=== PATIENT | female | born 1935 | race Caucasian/White ===

== ENCOUNTER 2017-05-21 13:53 | Inpatient (IN) | payer MEDICARE, OTHER ==
--- NOTE | 2017-05-21 14:35 | RADIOLOGY REPORT (SQ) ---
EXAM DESCRIPTION: CHEST SINGLE VIEW COMPLETED DATE/TIME: 05/21/2017 2:26 pm REASON FOR STUDY: sob COMPARISON: 11/17/2015 EXAM PARAMETERS: NUMBER OF VIEWS: One view. TECHNIQUE: Single frontal radiographic view of the chest acquired. RADIATION DOSE: NA LIMITATIONS: None. FINDINGS: LUNGS AND PLEURA: Patchy consolidation in the right mid-lower lung zones. Considerations for this finding includes pneumonia. The left lung is stable in appearance. No new pneumothorax or pleural effusion. MEDIASTINUM AND HILAR STRUCTURES: No masses. Contour normal. HEART AND VASCULAR STRUCTURES: Heart normal in size. Normal vasculature. BONES: No acute findings. HARDWARE: EKG leads overlie the anterior chest wall. OTHER: No other significant finding. IMPRESSION: 1 Patchy areas of consolidation in the right mid-lower lung zones. Considerations for t his finding includes pneumonia. A follow-up examination after treatment to document for interval res olution. TECHNICAL DOCUMENTATION: JOB ID: [id number] [employer]- All Rights Reserved Reading location - IP/workstation name: [email or web address]
[2017-05-21] MEDS ORDERED: CEFEPIME 1 GM/D5W RTU 1 GM/50 ML RTUPB IV ONE (14:36)
[2017-05-21] MEDS ORDERED: LEVOFLOXACIN 750 MG/D5W RTU 750 MG/150 ML RTUPB IV ONE (14:36)
[2017-05-21] MEDS ORDERED: VANCOMYCIN HCL INJ 1000 MG VIAL IV ONE (14:36)
--- NOTE | 2017-05-21 14:41 | ER Document Report ---
ED Respiratory Problem - General Mode of Arrival: Ambulatory Information source: Patient TRAVEL OUTSIDE OF THE [place] IN LAST 30 DAYS: No <ROSA NOVAK - Last Filed: 05/21/17 19:16> <HARVINDER SEALS - Last Filed: 05/21/17 23:11> - General Chief Complaint: Respiratory Distress Stated Complaint: COUGH Time Seen by Provider: 05/21/17 14:32 Notes: Patient is an 82 year old female with a history of Afib presents to the emergency department complaining of cough, congestion and diarrhea onset 1 week ago. Patient denies a history of COPD, asthma, or CHF. (ROSA NOVAK) - Related Data Allergies/Adverse Reactions: codeine [Codeine] Allergy (Verified 11/17/15 09:14) Generalized Itching Past Medical History - General Information source: Patient - Social History Smoking Status: Unknown if Ever Smoked Family History: Reviewed & Not Pertinent - Past Medical History Cardiac Medical History: Reports: Hx Hypercholesterolemia, Hx Hypertension Endocrine Medical History: Reports: Hx Hypothyroidism Musculoskeltal Medical History: Reports Hx Arthritis Past Surgical History: Reports: Hx Hysterectomy - partial - Immunizations Hx Diphtheria, Pertussis, Tetanus Vaccination: No <ROSA NOVAK - Last Filed: 05/21/17 19:16> Review of Systems - Review of Systems Constitutional: No symptoms reported EENT: No symptoms reported Cardiovascular: No symptoms reported Respiratory: See HPI, Cough Gastrointestinal: See HPI, Diarrhea Genitourinary: No symptoms reported Female Genitourinary: No symptoms reported Musculoskeletal: No symptoms reported Skin: No symptoms reported Hematologic/Lymphatic: No symptoms reported Neurological/Psychological: No symptoms reported -: Yes All other systems reviewed and negative <ROSA NOVAK - Last Filed: 05/21/17 19:16> Physical Exam <ROSA NOVAK - Last Filed: 05/21/17 19:16> <HARVINDER SEALS - Last Filed: 05/21/17 23:11> - Vital signs Vitals: Resp BP Pulse Ox 30 H 127/68 H 82 L 05/21/17 14:14 05/21/17 14:14 05/21/17 14:14 - Notes Notes: GENERAL: Alert, interacts well. Mild distress. HEAD: Normocephalic, atraumatic. EYES: Pupils equal, round, and reactive to light. Extraocular movements intact. ENT: Oral mucosa moist, tongue midline. NECK: Full range of motion. Supple. Trachea midline. LUNGS: On BiPAP at bedside. Hypoxic. Rales in the right mid to lower lung field. HEART: Tachycardic, irregularly irregular. No murmurs, gallops, or rubs. ABDOMEN: Soft, non-tender. Non-distended. Bowel sounds present in all 4 quadrants. EXTREMITIES: Moves all 4 extremities spontaneously. NEUROLOGICAL: Alert and oriented x3. Normal speech. PSYCH: Normal affect, normal mood. SKIN: Warm, dry, normal turgor. No rashes or lesions noted. (ROSA NOVAK) Course - Laboratory Result Diagrams: 05/21/17 15:23 05/21/17 15:23 <ROSA NOVAK - Last Filed: 05/21/17 19:16> - Laboratory Result Diagrams: 05/21/17 15:23 05/21/17 15:23 - Diagnostic Test Radiology reviewed: Reports reviewed <HARVINDER SEALS - Last Filed: 05/21/17 23:11> - Re-evaluation Re-evalutation: 05/21/17 14:35 X-ray shows Pneumonia in right lung. (ROSA NOVAK) Patient is an 82-year-old female who presents from home with cough and difficulty breathing. Patient is a full code. Recent upper respiratory infection. Chest x-ray is consistent with pneumonia as his clinical presentation. Cultures have been sent. Vancomycin was added to regimen due to recent URI. Patient is comfortable on BiPAP. She is speaking in full sentences. She is responded well to fluids. Patient was discussed with the hospitalist service and will be admitted to the ICU. Stable at time of admission. Patient and agree with this plan. (HARVINDER SEALS) - Vital Signs Vital signs: Temp Pulse Resp BP Pulse Ox 127 H 26 H 107/70 93 05/21/17 20:32 05/21/17 20:32 05/21/17 19:30 05/21/17 20:32 - Laboratory Laboratory results interpreted by ma: 05/21/17 05/21/17 05/21/17 15:23 15:23 15:23 WBC 20.5 H Hgb 11.7 L Hct 35.7 L Seg Neuts % (Manual) 87 H Lymphocytes % (Manual) 3 L Abs Neuts (Manual) 18.9 H Potassium 2.7 L* Carbon Dioxide 21 L BUN 46 H Lactic Acid 2.4 H Calcium 8.2 L Total Bilirubin 1.7 H Direct Bilirubin 0.9 H Alkaline Phosphatase 136 H Albumin 3.2 L Critical Care Note - Critical Care Note Total time excluding time spent on procedures (mins): 60 - Evaluation and management of respiratory distress, hypotension, sepsis, coordination of admission, multiple re-evaluations, counseling of patient and family <HARVINDER SEALS - Last Filed: 05/21/17 23:11> Discharge <ROSA NOVAK - Last Filed: 05/21/17 19:16> - Discharge Admitting Provider: Hospitalist Unit Admitted: ICU <HARVINDER SEALS - Last Filed: 05/21/17 23:11> - Discharge Clinical Impression: Respiratory distress, Hypokalemia Pneumonia Qualifiers: Pneumonia type: due to unspecified organism Laterality: right Lung location: unspecified part of lung Qualified Code(s): J18.9 - Pneumonia, unspecified organism Sepsis Qualifiers: Sepsis type: sepsis due to unspecified organism Qualified Code(s): A41.9 - Sepsis, unspecified organism Condition: Stable Disposition: ADMITTED INPATIENT Scribe Attestation: 05/21/17 23:11 I personally performed the services described in the documentation, reviewed and edited the documentation which was dictated to the scribe in my presence, and it accurately records my words and actions. (HARVINDER SEALS) Scribe Documentation - Scribe Written by Libertad:: Libertad Sood, 05/21/2017 15:05 acting as scribe for :: Arianna <ROSA NOVAK - Last Filed: 05/21/17 19:16>
[2017-05-21 15:44] LABS: HEMATOCRIT 35.7 % (36.0-47.0); HEMOGLOBIN 11.7 g/dL (12.0-15.5); MEAN CORPUSCULAR VOLUME 88 fl (80-97); RED BLOOD COUNT 4.05 10^6/uL (3.72-5.28); WHITE BLOOD COUNT 20.5 10^3/uL (4.0-10.5)
[2017-05-21 15:45] LABS: MEAN CORPUSCULAR HEMOGLOBIN 28.8 pg (27.0-33.4); MEAN CORPUSCULAR HGB CONC 32.7 g/dL (32.0-36.0); PLATELET COUNT 208 10^3/uL (150-450); RED CELL DISTRIBUTION WIDTH 13.4 % (11.5-14.0)
[2017-05-21 15:46] LABS: VENOUS BLOOD HCO3 24.9 mmol/L (20-32); VENOUS BLOOD PCO2 45.3 mmHg (35-63); VENOUS BLOOD PH 7.36 (7.30-7.42)
[2017-05-21 16:09] LABS: ALANINE AMINOTRANSFERASE 27 U/L (9-52); ALBUMIN 3.2 g/dL (3.5-5.0); ALKALINE PHOSPHATASE 136 U/L (38-126); ANION GAP 17 (5-19); ASPARTATE AMINO TRANSFERASE 32 U/L (14-36); BILIRUBIN,DIRECT 0.9 mg/dL (0.0-0.4); BILIRUBIN,TOTAL 1.7 mg/dL (0.2-1.3); BLOOD UREA NITROGEN 46 mg/dL (7-20); CALCIUM 8.2 mg/dL (8.4-10.2); CARBON DIOXIDE 21 mmol/L (22-30); CHLORIDE 99 mmol/L (98-107); CREATINE KINASE 68 U/L (30-135); GLUCOSE 85 mg/dL (75-110); SODIUM 137.4 mmol/L (137-145); TOTAL PROTEIN 6.5 g/dL (6.3-8.2)
[2017-05-21 16:15] LABS: POTASSIUM 2.7 mmol/L (3.6-5.0)
[2017-05-21 16:18] LABS: ABSOLUTE LYMPHOCYTES# (MANUAL) 0.6 10^3/uL (0.5-4.7); ABSOLUTE NEUTROPHILS# (MANUAL) 18.9 10^3/uL (1.7-8.2); BAND NEUTROPHILS % (MANUAL) 5 % (3-5); BASOPHILS % (MANUAL) 0 % (0-2); EOSINOPHILS % (MANUAL) 0 % (0-6); LYMPHOCYTES % (MANUAL) 3 % (13-45); MONOCYTES % (MANUAL) 5 % (3-13); SEGMENTED NEUTROPHILS % (MAN) 87 % (42-78); TOTAL CELLS COUNTED 100
[2017-05-21 16:19] LABS: PLATELET COMMENT ADEQUATE; TOXIC GRANULATION SLIGHT
[2017-05-21 16:22] LABS: CREATINE KINASE MB 1.67 ng/mL (<4.55); TROPONIN I 0.016 ng/mL
[2017-05-21] MEDS ORDERED: NORMAL SALINE 1000 ML 1,000 ML IV ONE (16:23)
[2017-05-21] MEDS ORDERED: IPRATROPIUM/ALBUTEROL 0.5-2.5 MG/3 ML AMPUL NEB ONE (16:51)
[2017-05-21 17:04] LABS: APPEARANCE,URINE SLIGHTLY-CLOUDY; BILIRUBIN,URINE NEGATIVE (NEGATIVE); COLOR,URINE AMBER; GLUCOSE, URINE NEGATIVE (NEGATIVE); KETONES,URINE NEGATIVE (NEGATIVE); LEUKOCYTE ESTERASE,URINE NEGATIVE (NEGATIVE); NITRITE,URINE NEGATIVE (NEGATIVE); PROTEIN,URINE 100 mg/dL (NEGATIVE); URINE SPECIFIC GRAVITY 1.018; UROBILINOGEN,URINE NEGATIVE mg/dL (<2.0)
[2017-05-21] MEDS: POTASSI CL 20 MEQ/50 ML RIDER 20 MEQ/50 ML RTUPB IV SCH ×2 (17:06→19:25)
[2017-05-21] MEDS ORDERED: ALBUTEROL SULFATE 0.083% NEB 2.5 MG/3 ML AMPUL NEB PRN (17:57)
[2017-05-21] MEDS ORDERED: ACETAMINOPHEN 325 MG TABLET PO PRN (17:57)
[2017-05-21] MEDS ORDERED: PROMETHAZINE HCL 25 MG TABLET PO PRN (17:57)
[2017-05-21] MEDS ORDERED: MAGNESIUM HYDROXIDE SUSP 30 ML UDCUP PO PRN (17:57)
--- NOTE | 2017-05-21 17:57 | PDOC H&P ---
History of Present Illness Admission Date/PCP: 05/21/17 16:36 HONEY ISAACS NP; Dr. Higginbotham Custom Garment Designer; Dr. Roblero is paralegal internship History of Present Illness: ADA LANDERS is a 82 year old female presents to the emergency department with acute hypoxic respiratory failure secondary to pneumonia. Most of the history was actually obtained from the patient's . Apparently, the patient has been feeling poorly. The has noted that she has been breathing hard lately and she has not been eating. Further history obtained from the patient indicates that she has been coughing up a lot of clear phlegm. She does not have any fevers. She states that she feels cold but this is normal for her. She has not had any sweats. Both the patient's and their daughter have been ill with a cough and sore throat. The patient's only other symptom on review of systems is diarrhea that started with the onset of this illness. The patient presented to the emergency department her room air saturation was in the 60s and she was placed on BiPAP. She is now on 5 L nasal cannula satting in the low 90s. She is speaking very easily. When I was titrating her oxygen I noted that when she was satting in the 80s check she appeared to be very comfortable and therefore I question as to whether or not she has some component of chronic hypoxic respiratory failure. A copy of the patient's medication list was given to me from the ED staff. It will be updated in the chart by pharmacy. Past Medical History Cardiac Medical History: Reports: Atrial Fibrillation, Hyperlipidema, Hypertension Denies: Myocardial Infarction Pulmonary Medical History: Denies: Asthma Neurological Medical History: Denies: Seizures Endocrine Medical History: Reports: Hypothyroidism GI Medical History: Denies: Hepatitis, Hiatal Hernia Musculoskeltal Medical History: Reports: Arthritis Hematology: Denies: Anemia, Sickle Cell Disease Past Surgical History Past Surgical History: Reports: Hysterectomy - partial Denies: Mastectomy, Pacemaker Social History Smoking Status: Unknown if Ever Smoked Frequency of Alcohol Use: Heavy Hx Recreational Drug Use: No Drugs: None Hx Prescription Drug Abuse: No - Advance Directive Resuscitation Status: Full Code Surrogate healthcare decision maker:: The patient's , Tate Moses is her surrogate decision maker. He can be reached at [phone] Family History Family History: Reviewed & Not Pertinent Parental Family History Reviewed: Yes Children Family History Reviewed: Yes Sibling(s) Family History Reviewed.: Yes Medication/Allergy Allergies/Adverse Reactions: codeine [Codeine] Allergy (Verified 11/17/15 09:14) Generalized Itching Review of Systems Constitutional: PRESENT: anorexia, fatigue, weakness Eyes: ABSENT: as per HPI, visual disturbances, other Ears: ABSENT: as per HPI, hearing changes, other Nose, Mouth, and Throat: ABSENT: as per HPI, headache(s), mouth pain, sore throat, vertigo, other Breasts: ABSENT: as per HPI, other Cardiovascular: ABSENT: as per HPI, chest pain, dyspnea on exertion, edema, orthropnea, palpitations, other Respiratory: PRESENT: as per HPI Gastrointestinal: PRESENT: dysphagia Genitourinary: ABSENT: as per HPI, difficulty urinating, dysuria, hematuria, nocturia, other Musculoskeletal: ABSENT: as per HPI, back pain, deformity, joint swelling, muscle weakness, other Integumentary: ABSENT: as per HPI, diaphoresis, erythema, lesions, pruritus, rash, wounds, other Neurological: ABSENT: as per HPI, abnormal gait, abnormal movements, abnormal speech, confusion, convulsions, dizziness, focal weakness, frequent falls, lack of coordination, memory loss, numbness, paresthesias, restless legs, syncope, tingling, tremor(s), vertigo, weakness, other Psychiatric: ABSENT: as per HPI, anxiety, depression, hallucinations, homidical ideation, suicidal ideation, other Endocrine: ABSENT: as per HPI, cold intolerance, flushing, heat intolerance, menstrual abnormalities, polydipsia, polyphagia, polyuria, other Hematologic/Lymphatic: ABSENT: as per HPI, easy bleeding, easy bruising, lymphadenopathy, other Allergic/Immunologic: ABSENT: as per HPI, seasonal rhinorrhea, other Physical Exam Vital Signs: Temp Pulse Resp BP Pulse Ox 31 H 120/69 82 L 05/21/17 15:01 05/21/17 15:01 05/21/17 14:14 Additional comments: The patient appears to be very frail. She appears to be older than her stated age. She is thin. She has evidence of temporal wasting. She did not appear to be in any distress even when her oxygen saturations were only in the mid 80s. Her facial appearance is otherwise unremarkable. Her oropharynx is benign. She has dentures both upper and lower. Her neck is supple. She does not have any JVD present. Trachea is midline. Thyroid is nonpalpable. Lungs are diminished throughout without adventitious sounds. The cardiac exam demonstrates an irregularly irregular rhythm. No murmurs, gallops or rubs are noted. The abdomen is soft and flat. Bowel sounds are noted and are normoactive. She does not have guarding or rebound noted and there are no hernias or masses present. The lower extremities do not demonstrate any edema. The patient has bluish discoloration of her toes which she says is her baseline. The states that this is worse than her baseline. Otherwise, she has no acute skin lesions or rashes. Results Laboratory Results: 05/21/17 16:40 Urine Color DANO Urine Appearance SLIGHTLY-CLOUDY Urine pH 5.0 Ur Specific [place] 1.018 Urine Protein 100 H Urine Glucose (UA) NEGATIVE Urine Ketones NEGATIVE Urine Blood SMALL H Urine Nitrite NEGATIVE Ur Leukocyte Esterase NEGATIVE Urine WBC (Auto) 2 Urine RBC (Auto) 1 Impressions: Chest X-Ray 05/21/17 14:05 IMPRESSION: 1 Patchy areas of consolidation in the right mid-lower lung zones. Considerations for this finding includes pneumonia. A follow-up examination after treatment to document for interval resolution. Assessment & Plan - Diagnosis (1) Acute respiratory failure with hypoxia Is this a current diagnosis for this admission?: Yes Plan: The patient presents with acute hypoxic respiratory failure, however, I suspect that she has acute on chronic hypoxic respiratory failure. In any event, the patient will be treated with supplemental oxygen to maintain a saturation of 90- 94%. If needed, we will reinstitute BiPAP. She likely has underlying COPD in addition to her current diagnosis of pneumonia. (2) Pneumonia Is this a current diagnosis for this admission?: Yes Plan: The patient presents with an infiltrate on chest x-ray, a clinical history compatible with pneumonia and leukocytosis. The patient does not appear to have any risk factors for healthcare associated pneumonia. Therefore, she will be treated with ceftriaxone and Levaquin. (3) Atrial fibrillation and flutter Is this a current diagnosis for this admission?: Yes Plan: Patient appears to be going in and out of sinus tachycardia and atrial fibrillation/flutter. She does take Cardizem daily. We will continue Cardizem and ensure that her potassium is repleted. (4) Malnourished Is this a current diagnosis for this admission?: Yes Plan: I will order a dietary consult. (5) Hypokalemia Is this a current diagnosis for this admission?: Yes Plan: Patient is receiving both oral and IV replacement (6) Peripheral vascular disease Is this a current diagnosis for this admission?: Yes Plan: Suspect the patient has peripheral vascular disease based on her clinical exam. She is not symptomatic at this time. Smoking cessation would be beneficial. This was discussed with the patient. (7) Tobacco abuse Is this a current diagnosis for this admission?: Yes Plan: Smoking cessation has been addressed. - Time Time Spent: 50 to 70 Minutes - Inpatient Certification Medical Necessity: Significant Comorbidiites Make Outpatient Treatment Too Risky , Need Close Monitoring Due to Risk of Patient Decompensation, Need For Continuous Telemetry Monitoring, Need for IV Antibiotics, Risk of Complication if Not Cared For in Hospital, Risk of Diagnosis Which Will Require Inpatient Eval/Care/Monitoring
[2017-05-21] MEDS ORDERED: DILTIAZEM HCL INJ 25 MG/5 ML VIAL IV ONE (19:00)
[2017-05-21] MEDS ORDERED: METHYLPREDNISOLONE INJ 125 MG/2 ML SDV IV ONE (19:00)
--- NOTE | 2017-05-21 19:00 | EKG REPORT ---
SEVERITY:- ABNORMAL ECG - INITIAL SINUS RHYTHM DEGENERATING INTO A FIBRILLATION WITHH RVR NONSPECIFIC IVCD WITH LAD : Confirmed by: Tom Steve MD 21-May-2017 18:59:34
[2017-05-21] MEDS: IPRATROPIUM/ALBUTEROL 0.5-2.5 MG/3 ML AMPUL NEB SCH (20:32)
[2017-05-21 20:40] LABS: ARTERIAL BLOOD BASE EXCESS -3.3 mmol/L; ARTERIAL BLOOD FIO2 6L; ARTERIAL BLOOD H2CO3 0.87 mmol/L (1.05-1.35); ARTERIAL BLOOD HCO3 19.7 mmol/L (20-26); ARTERIAL BLOOD O2 SATURATION 91.9 % (94-98); ARTERIAL BLOOD PH 7.45 (7.35-7.45); ARTERIAL BLOOD PO2 58.4 mmHg (80-100); ARTERIAL BLOOD TOTAL CO2 20.5 mmol/L (21-25)
[2017-05-21] MEDS ORDERED: FENTANYL CITRATE INJ/PF 100 MCG/2 ML AMPUL IV ONE (21:41)
[2017-05-21] MEDS ORDERED: CEFTRIAXONE SODIUM 1,000 MG in NORMAL SALINE 100 ML IV SCH (22:00)
[2017-05-21] MEDS ORDERED: FAMOTIDINE INJ/PF 20 MG/2 ML SDV IV SCH (22:00)
[2017-05-22] MEDS: FAMOTIDINE INJ/PF 20 MG/2 ML SDV IV SCH ×2 (01:54→23:23)
[2017-05-22] MEDS ORDERED: METHYLPREDNISOLONE INJ 125 MG/2 ML SDV IV SCH ×2 (02:00→08:21)
[2017-05-22] MEDS: IPRATROPIUM/ALBUTEROL 0.5-2.5 MG/3 ML AMPUL NEB SCH ×4 (02:15→20:16)
[2017-05-22] MEDS: POTASSI CL 40 MEQ/D5-1/2NS 1L 40 MEQ/1,000 ML RTUINJ IV PRN ×2 (03:52→20:28)
[2017-05-22 06:36] LABS: ANION GAP 14 (5-19); BLOOD UREA NITROGEN 29 mg/dL (7-20); CALCIUM 7.4 mg/dL (8.4-10.2); CARBON DIOXIDE 16 mmol/L (22-30); CHLORIDE 107 mmol/L (98-107); GLUCOSE 136 mg/dL (75-110); PHOSPHORUS 2.6 mg/dL (2.5-4.5); POTASSIUM 3.1 mmol/L (3.6-5.0); SODIUM 137.2 mmol/L (137-145)
[2017-05-22 06:52] LABS: FREE T3 1.22 pg/mL (2.77-5.27); FREE T4 (FREE THYROXINE) 1.4 ng/dL (0.78-2.19)
[2017-05-22 07:06] LABS: THYROID STIMULATING HORMONE 0.12 uIU/mL (0.47-4.68)
--- NOTE | 2017-05-22 07:29 | EKG REPORT ---
SEVERITY:- ABNORMAL ECG - SINUS TACHYCARDIA PAIRED ATRIAL PREMATURE COMPLEXES INCOMPLETE LEFT BUNDLE BRANCH BLOCK : Confirmed by: Tom Steve MD 22-May-2017 07:29:04
[2017-05-22 07:57] LABS: INTERNATIONAL RATION (INR) 1.09; PARTIAL THROMBOPLASTIN TIME 46.8 SEC (23.5-35.8); PROTHROMBIN TIME 14.8 SEC (11.4-15.4)
[2017-05-22] MEDS: POTASSIUM CHLORIDE 10 MEQ TABLET.SA PO SCH ×5 (08:54→23:22)
[2017-05-22 09:19] LABS: HEMATOCRIT 34.1 % (36.0-47.0); HEMOGLOBIN 11.5 g/dL (12.0-15.5); MEAN CORPUSCULAR HEMOGLOBIN 29.5 pg (27.0-33.4); MEAN CORPUSCULAR HGB CONC 33.7 g/dL (32.0-36.0); MEAN CORPUSCULAR VOLUME 88 fl (80-97); PLATELET COUNT 160 10^3/uL (150-450); RED CELL DISTRIBUTION WIDTH 13.7 % (11.5-14.0); WHITE BLOOD COUNT 6.4 10^3/uL (4.0-10.5)
[2017-05-22 09:40] LABS: ABSOLUTE LYMPHOCYTES# (MANUAL) 0.3 10^3/uL (0.5-4.7); ABSOLUTE MONOCYTES # (MANUAL) 0.4 10^3/uL (0.1-1.4); ABSOLUTE NEUTROPHILS# (MANUAL) 5.8 10^3/uL (1.7-8.2); BAND NEUTROPHILS % (MANUAL) 4 % (3-5); BASOPHILS % (MANUAL) 0 % (0-2); EOSINOPHILS % (MANUAL) 0 % (0-6); LYMPHOCYTES % (MANUAL) 4 % (13-45); METAMYELOCYTES % (MANUAL) 1 % (0); MONOCYTES % (MANUAL) 6 % (3-13); SEGMENTED NEUTROPHILS % (MAN) 85 % (42-78); TOTAL CELLS COUNTED 100
[2017-05-22 09:41] LABS: BURR CELLS SLIGHT; OVALOCYTES 1+; PLATELET COMMENT ADEQUATE; POIKILOCYTOSIS 1+
[2017-05-22] MEDS ORDERED: ASPIRIN 81 MG TABLET, ENT COATED PO SCH (10:00)
[2017-05-22] MEDS ORDERED: CEFTRIAXONE 1 GM/D5W RTU 50 ML IV SCH (10:00)
[2017-05-22] MEDS: ENOXAPARIN SODIUM INJ 40 MG/0.4 ML DISP.SYRIN SUBCUT SCH (10:06)
[2017-05-22] MEDS: DILTIAZEM HCL 180 MG CAPSULE.CR PO SCH (10:10)
[2017-05-22] MEDS: METHYLPREDNISOLONE INJ 40 MG/1 ML SDV IV SCH ×2 (10:11→17:29)
--- NOTE | 2017-05-22 18:12 | PDOC PROGRESS REPORT ---
Subjective Progress Note for:: 05/22/17 Subjective:: Patient refers that her breathing is better. Denies chest pain. Review of system All organ systems evaluated and negative except as in subjective All significant laboratories and diagnostics have been reviewed Reason For Visit: ACUTE HYPOXIC RESPIRATORY FAILURE WITH PNEUMONIA Physical Exam Vital Signs: Temp Pulse Resp BP Pulse Ox 101 H 23 H 117/81 87 L 05/22/17 02:15 05/22/17 04:31 05/22/17 04:31 05/22/17 04:31 General appearance: PRESENT: cooperative, thin Head exam: PRESENT: atraumatic, normocephalic Eye exam: PRESENT: conjunctiva pink, EOMI, PERRLA Mouth exam: PRESENT: moist Neck exam: PRESENT: full ROM. ABSENT: JVD, lymphadenopathy, tenderness Respiratory exam: PRESENT: clear to auscultation pavel, decreased breath sounds Cardiovascular exam: PRESENT: RRR. ABSENT: diastolic murmur, systolic murmur Vascular exam: PRESENT: normal capillary refill GI/Abdominal exam: PRESENT: normal bowel sounds, soft. ABSENT: tenderness Extremities exam: PRESENT: full ROM. ABSENT: pedal edema, tenderness Musculoskeletal exam: PRESENT: ambulatory Neurological exam: PRESENT: alert, awake, oriented to person, oriented to place , oriented to time Psychiatric exam: PRESENT: appropriate affect, normal mood Skin exam: PRESENT: dry, normal color Results Laboratory Results: 05/22/17 06:05 05/22/17 06:05 05/21/17 05/21/17 05/21/17 16:40 18:40 19:26 WBC RBC Hgb Hct MCV MCH MCHC RDW Plt Count Seg Neutrophils % Lymphocytes % Monocytes % Eosinophils % Basophils % Absolute Neutrophils Absolute Lymphocytes Absolute Monocytes Absolute Eosinophils Absolute Basophils Carbonic Acid 0.87 L HCO3/H2CO3 Ratio 22:1 ABG pH 7.45 ABG pCO2 29.0 L ABG pO2 58.4 L ABG HCO3 19.7 L ABG O2 Saturation 91.9 L ABG Base Excess -3.3 FiO2 6L Sodium Potassium Chloride Carbon Dioxide Anion Gap BUN Creatinine Est GFR ( Amer) Est GFR (Non-Af Amer) Glucose Lactic Acid 3.2 H Calcium Phosphorus TSH Free T4 Free T3 pg/mL Urine Color DANO Urine Appearance SLIGHTLY-CLOUDY Urine pH 5.0 Ur Specific [place] 1.018 Urine Protein 100 H Urine Glucose (UA) NEGATIVE Urine Ketones NEGATIVE Urine Blood SMALL H Urine Nitrite NEGATIVE Ur Leukocyte Esterase NEGATIVE Urine WBC (Auto) 2 Urine RBC (Auto) 1 05/22/17 05/22/17 05/22/17 06:05 06:05 06:05 WBC Cancelled RBC Cancelled Hgb Cancelled Hct Cancelled MCV Cancelled MCH Cancelled MCHC Cancelled RDW Cancelled Plt Count Cancelled Seg Neutrophils % Cancelled Lymphocytes % Cancelled Monocytes % Cancelled Eosinophils % Cancelled Basophils % Cancelled Absolute Neutrophils Cancelled Absolute Lymphocytes Cancelled Absolute Monocytes Cancelled Absolute Eosinophils Cancelled Absolute Basophils Cancelled Carbonic Acid HCO3/H2CO3 Ratio ABG pH ABG pCO2 ABG pO2 ABG HCO3 ABG O2 Saturation ABG Base Excess FiO2 Sodium 137.2 Potassium 3.1 L Chloride 107 Carbon Dioxide 16 L Anion Gap 14 BUN 29 H Creatinine 0.41 L Est GFR ( Amer) > 60 Est GFR (Non-Af Amer) > 60 Glucose 136 H Lactic Acid Calcium 7.4 L Phosphorus 2.6 TSH 0.12 L Free T4 1.40 Free T3 pg/mL 1.22 L Urine Color Urine Appearance Urine pH Ur Specific [place] Urine Protein Urine Glucose (UA) Urine Ketones Urine Blood Urine Nitrite Ur Leukocyte Esterase Urine WBC (Auto) Urine RBC (Auto) Impressions: Chest X-Ray 05/21/17 14:05 IMPRESSION: 1 Patchy areas of consolidation in the right mid-lower lung zones. Considerations for this finding includes pneumonia. A follow-up examination after treatment to document for interval resolution. Assessment & Plan - Diagnosis (1) Acute respiratory failure with hypoxia Is this a current diagnosis for this admission?: Yes Plan: Improved. Will wean off oxygen as tolerated (2) Atrial fibrillation and flutter Is this a current diagnosis for this admission?: Yes Plan: Stable continue current management (3) Hypokalemia Is this a current diagnosis for this admission?: Yes Plan: Replace p.o. and trend (4) Malnourished Qualifiers: Malnutrition type: protein-calorie malnutrition Protein-calorie malnutrition severity: moderate Qualified Code(s): E44.0 - Moderate protein- calorie malnutrition Is this a current diagnosis for this admission?: Yes Plan: Dietitian consult (5) Pneumonia Qualifiers: Pneumonia type: due to unspecified organism Laterality: right Lung location: unspecified part of lung Qualified Code(s): J18.9 - Pneumonia, unspecified organism Is this a current diagnosis for this admission?: Yes Plan: Transitioned to Levaquin oral (6) Sepsis Qualifiers: Sepsis type: sepsis due to unspecified organism Qualified Code(s): A41.9 - Sepsis, unspecified organism Is this a current diagnosis for this admission?: Yes Plan: Resolved (7) Tobacco abuse Is this a current diagnosis for this admission?: Yes Plan: Educated about quitting (8) Alcohol use Is this a current diagnosis for this admission?: Yes Plan: So far no signs of withdrawal - Time Time Spent with patient: 15-24 minutes Medications reviewed and adjusted accordingly: Yes Anticipated discharge: Acute Rehab Within: within 48 hours - Inpatient Certification Based on my medical assessment, after consideration of the patient's comorbidities, presenting symptoms, or acuity I expect that the services needed warrant INPATIENT care.: Yes I certify that my determination is in accordance with my understanding of Medicare's requirements for reasonable and necessary INPATIENT services [42 CFR 412.3e].: Yes Medical Necessity: Need Close Monitoring Due to Risk of Patient Decompensation
[2017-05-22] MEDS: OXYCODONE-ACETAMINOPHEN 5-325 MG TABLET PO PRN (20:28)
[2017-05-23 01:07] LABS: ARTERIAL BLOOD BASE EXCESS -8.3 mmol/L; ARTERIAL BLOOD H2CO3 0.92 mmol/L (1.05-1.35); ARTERIAL BLOOD HCO3 16.2 mmol/L (20-26); ARTERIAL BLOOD O2 SATURATION 82.9 % (94-98); ARTERIAL BLOOD PCO2 30.5 mmHg (35-45); ARTERIAL BLOOD PH 7.34 (7.35-7.45); ARTERIAL BLOOD PO2 48.7 mmHg (80-100); ARTERIAL BLOOD TOTAL CO2 17.1 mmol/L (21-25)
[2017-05-23] MEDS: METHYLPREDNISOLONE INJ 40 MG/1 ML SDV IV SCH ×3 (01:47→17:44)
[2017-05-23] MEDS: OXYCODONE-ACETAMINOPHEN 5-325 MG TABLET PO PRN (01:57)
[2017-05-23] MEDS: IPRATROPIUM/ALBUTEROL 0.5-2.5 MG/3 ML AMPUL NEB SCH ×4 (02:54→20:53)
[2017-05-23 03:33] LABS: ARTERIAL BLOOD BASE EXCESS -20.9 mmol/L; ARTERIAL BLOOD H2CO3 0.91 mmol/L (1.05-1.35); ARTERIAL BLOOD HCO3 8.3 mmol/L (20-26); ARTERIAL BLOOD O2 SATURATION 91.1 % (94-98); ARTERIAL BLOOD PCO2 30.3 mmHg (35-45); ARTERIAL BLOOD PO2 82.7 mmHg (80-100); ARTERIAL BLOOD TOTAL CO2 9.2 mmol/L (21-25)
[2017-05-23 03:35] LABS: ARTERIAL BLOOD FIO2 50%
[2017-05-23 03:37] LABS: ARTERIAL BLOOD PH 7.05 (7.35-7.45)
[2017-05-23] MEDS ORDERED: SODIUM BICARBONATE 8.4% INJ 50 MEQ/50 ML DISP.SYRIN ONE ×5 (03:45→23:02)
[2017-05-23] MEDS ORDERED: POTASSI CL 40 MEQ/D5-1/2NS 1L 1000 ML IV PRN (03:50)
[2017-05-23] MEDS ORDERED: VANCOMYCIN HCL 0 MG in DEXTROSE 5%-WATER 250 ML IV NR (04:00)
[2017-05-23] MEDS ORDERED: VANCOMYCIN HCL 1,000 MG in DEXTROSE 5%-WATER 250 ML IV ONE (04:00)
[2017-05-23] MEDS ORDERED: VANCOMYCIN HCL INJ 1000 MG VIAL IV PRN (04:00)
[2017-05-23] MEDS ORDERED: SODIUM BICARBONATE 8.4% INJ 50 MEQ/50 ML DISP.SYRIN IV ONE (04:00)
[2017-05-23 04:40] LABS: HEMATOCRIT 37.4 % (36.0-47.0); HEMOGLOBIN 11.9 g/dL (12.0-15.5); MEAN CORPUSCULAR HEMOGLOBIN 28.8 pg (27.0-33.4); MEAN CORPUSCULAR HGB CONC 31.7 g/dL (32.0-36.0); MEAN CORPUSCULAR VOLUME 91 fl (80-97); PLATELET COUNT 250 10^3/uL (150-450); RED BLOOD COUNT 4.12 10^6/uL (3.72-5.28); RED CELL DISTRIBUTION WIDTH 14.1 % (11.5-14.0); WHITE BLOOD COUNT 4.4 10^3/uL (4.0-10.5)
[2017-05-23 04:53] LABS: ALANINE AMINOTRANSFERASE 26 U/L (9-52); ALKALINE PHOSPHATASE 107 U/L (38-126); ASPARTATE AMINO TRANSFERASE 63 U/L (14-36); BILIRUBIN,DIRECT 0.6 mg/dL (0.0-0.4); BLOOD UREA NITROGEN 20 mg/dL (7-20); CREATINE KINASE 116 U/L (30-135); GLUCOSE 219 mg/dL (75-110); TOTAL PROTEIN 5.7 g/dL (6.3-8.2)
[2017-05-23 04:59] LABS: CARBON DIOXIDE 17 mmol/L (22-30); CHLORIDE 110 mmol/L (98-107); SODIUM 148.9 mmol/L (137-145)
[2017-05-23 05:01] LABS: ABSOLUTE LYMPHOCYTES# (MANUAL) 0.5 10^3/uL (0.5-4.7); ABSOLUTE MONOCYTES # (MANUAL) 0.2 10^3/uL (0.1-1.4); ABSOLUTE NEUTROPHILS# (MANUAL) 3.7 10^3/uL (1.7-8.2); BAND NEUTROPHILS % (MANUAL) 4 % (3-5); BASOPHILS % (MANUAL) 0 % (0-2); CREATINE KINASE MB 7.91 ng/mL (<4.55); EOSINOPHILS % (MANUAL) 0 % (0-6); LYMPHOCYTES % (MANUAL) 11 % (13-45); MONOCYTES % (MANUAL) 5 % (3-13); SEGMENTED NEUTROPHILS % (MAN) 80 % (42-78); TOTAL CELLS COUNTED 100
[2017-05-23 05:03] LABS: BURR CELLS 1+; POIKILOCYTOSIS 1+
[2017-05-23 05:04] LABS: PLATELET COMMENT ADEQUATE
[2017-05-23 05:08] LABS: ANION GAP 22 (5-19)
[2017-05-23 05:09] LABS: POTASSIUM 6.9 mmol/L (3.6-5.0)
[2017-05-23 05:10] LABS: TROPONIN I 0.596 ng/mL
[2017-05-23] MEDS ORDERED: LACTULOSE SYRUP 20 GM/30 ML UDCUP PO ONE (05:14)
[2017-05-23] MEDS ORDERED: CALCIUM GLUCONATE 2,222 MG in DEXTROSE 5%-WATER 100 ML IV ONE (05:14)
[2017-05-23] MEDS ORDERED: FENTANYL CITRATE INJ/PF 100 MCG/2 ML AMPUL IV PRN (05:20)
[2017-05-23] MEDS ORDERED: DEXTROSE 5%-WATER 1000 ML 1,000 ML with SODIUM BICARBONATE 150 MEQ IV PRN ×4 (05:28→22:54)
[2017-05-23] MEDS ORDERED: VANCOMYCIN HCL INJ 1000 MG VIAL ONE (05:28)
[2017-05-23] MEDS ORDERED: CALCIUM GLUCONATE 1000 MG/10 ML INJ IV ONE (05:33)
[2017-05-23] MEDS ORDERED: NORMAL SALINE 1000 ML 1,000 ML IV PRN (07:59)
--- NOTE | 2017-05-23 08:25 | EKG REPORT ---
SEVERITY:- ABNORMAL ECG - NEW WIDE QRS COMPLEX , CLINICAL CORRELATION NEEDED. VENTRICULAR PREMATURE COMPLEX : Confirmed by: Tom Steve MD 23-May-2017 08:24:43
[2017-05-23] MEDS ORDERED: MAGNESIUM SULFATE/D5W 1 GM/100 ML RTUPB IV SCH (08:45)
[2017-05-23] MEDS ORDERED: PROPOFOL 100 ML IV PRN (08:59)
[2017-05-23] MEDS ORDERED: PROPOFOL 100 ML IV ONE (09:00)
[2017-05-23] MEDS ORDERED: PHENYLEPHRINE HCL INJ/PF 10 MG/1 ML SDV ONE ×3 (09:13→14:16)
[2017-05-23 09:15] LABS: ARTERIAL BLOOD BASE EXCESS -10.6 mmol/L; ARTERIAL BLOOD H2CO3 0.84 mmol/L (1.05-1.35); ARTERIAL BLOOD HCO3 14.1 mmol/L (20-26); ARTERIAL BLOOD O2 SATURATION 95.9 % (94-98); ARTERIAL BLOOD PCO2 27.8 mmHg (35-45); ARTERIAL BLOOD PH 7.32 (7.35-7.45); ARTERIAL BLOOD TOTAL CO2 14.9 mmol/L (21-25)
[2017-05-23 09:16] LABS: ARTERIAL BLOOD FIO2 70%
[2017-05-23] MEDS ORDERED: PHARMACY COMMUNICATION ORDER MC NR (09:30)
[2017-05-23] MEDS ORDERED: MIDAZOLAM HCL 50 MG/100 ML RTUINJ IV ONE ×2 (09:31→14:16)
--- NOTE | 2017-05-23 10:22 | PDOC PROGRESS REPORT ---
Bedside Procedure - Central Line Right Internal jugular Time completed: 10:20 Consent obtained: Yes Central line pre-insertion: Sterile PPE donned, Betadine prep applied, Chloraprep applied, Sterile drapes applied Central line lumen type: Triple Anesthetic type: 1% Lidocaine Ultrasound guided: Yes Line secured with sutures: Yes Central line post-insertion: Blood return from lumens, Biopatch applied, Sutured , Sterile dressing applied, Position confirmed w/ CXR Complications: No Notes: 05/23/17 10:21 s/p [employer] poor venous access
--- NOTE | 2017-05-23 10:35 | RADIOLOGY REPORT (SQ) ---
EXAM DESCRIPTION: KUB/ABDOMEN (SINGLE VIEW) COMPLETED DATE/TIME: 05/23/2017 10:23 am REASON FOR STUDY: Check Placement of NG Tube COMPARISON: Chest x-ray dated 05/23/2017 TECHNIQUE: AP view of the lower thorax and upper abdomen LIMITATIONS: None. FINDINGS: NG tube is seen with its tip in the left upper quadrant presumably at the level of the mid stomach. Consolidative process is identified in the right lung base which appears essentially uncha nged as compared to the previous study. Central line is unchanged in position IMPRESSION: NG tube with its tip in the left upper quadrant presumably at the level of the mid stoma ch. Other findings as noted above TECHNICAL DOCUMENTATION: JOB ID: [id number] [employer]- All Rights Reserved Reading location - IP/workstation name: [email or web address]
--- NOTE | 2017-05-23 10:35 | RADIOLOGY REPORT (SQ) ---
EXAM DESCRIPTION: CHEST SINGLE VIEW COMPLETED DATE/TIME: 05/23/2017 10:23 am REASON FOR STUDY: ET TUBE PLACEMENT COMPARISON: Chest films 12/30/2009, 01/12/2010, 11/17/2015, 05/21/2017 EXAM PARAMETERS: NUMBER OF VIEWS: One view. TECHNIQUE: Single frontal radiographic view of the chest acquired. RADIATION DOSE: NA LIMITATIONS: None. FINDINGS: LUNGS AND PLEURA: There is dense consolidation in the right lower lobe worrisome for pneum onia. This is more prominent than on 05/21/2017. Remainder of the lungs are hyperlucent but clear. No pleural effusion. No pneumothorax. Stable chronic biapical pleuroparenchymal calcification and s carring. MEDIASTINUM AND HILAR STRUCTURES: No masses. Contour normal. HEART AND VASCULAR STRUCTURES: Heart normal in size. Normal vasculature. BONES: No acute findings. HARDWARE: Endotracheal tube tip 3 cm above the edgar. Nasogastric tube tip and side port in the sto mach. Right jugular central line tip in the right atrium. OTHER: No other significant finding. IMPRESSION: Increasing dense consolidation in the right lower lobe worrisome for pneumonia. Tubes and lines as above TECHNICAL DOCUMENTATION: JOB ID: [id number] [employer]- All Rights Reserved Reading location - IP/workstation name: [email or web address]
[2017-05-23 10:49] LABS: ARTERIAL BLOOD BASE EXCESS -9.2 mmol/L; ARTERIAL BLOOD HCO3 16.2 mmol/L (20-26); ARTERIAL BLOOD O2 SATURATION 99.3 % (94-98); ARTERIAL BLOOD PCO2 33.2 mmHg (35-45); ARTERIAL BLOOD PH 7.31 (7.35-7.45); ARTERIAL BLOOD TOTAL CO2 17.2 mmol/L (21-25)
[2017-05-23 10:50] LABS: ARTERIAL BLOOD FIO2 100%
[2017-05-23] MEDS ORDERED: ROCURONIUM BROMIDE INJ 50 MG/5 ML VIAL IV ONE (10:50)
[2017-05-23] MEDS ORDERED: SUCCINYLCHOLINE CHLORIDE INJ 200 MG/10 ML VIAL ONE (10:50)
[2017-05-23 11:59] LABS: ANION GAP 12 (5-19); BLOOD UREA NITROGEN 25 mg/dL (7-20); CARBON DIOXIDE 20 mmol/L (22-30); CHLORIDE 116 mmol/L (98-107); CREATINE KINASE 158 U/L (30-135); GLUCOSE 141 mg/dL (75-110); SODIUM 148.2 mmol/L (137-145)
[2017-05-23 12:09] LABS: POTASSIUM 5.2 mmol/L (3.6-5.0)
[2017-05-23 12:11] LABS: CREATINE KINASE MB 12.2 ng/mL (<4.55)
[2017-05-23 12:16] LABS: TROPONIN I 0.781 ng/mL
--- NOTE | 2017-05-23 16:02 | PDOC PROGRESS REPORT ---
Subjective Progress Note for:: 05/23/17 Subjective:: Unable to obtain due to patient's mental status. Tonight hospitalist reported that patient got progressively short of breath and had to be placed on BiPAP in addition lactic acid was markedly elevated. Nurse reports discoloration of the toes. Has been trying to get hold of family members but unsuccessful. Patient required to be transferred to intensive care unit due to impending intubation since full code Review of system All organ systems evaluated and negative except as in subjective All significant laboratories and diagnostics have been reviewed Reason For Visit: ACUTE HYPOXIC RESPIRATORY FAILURE WITH PNEUMONIA Physical Exam Vital Signs: Temp Pulse Resp BP Pulse Ox 98.3 F 118 H 32 H 112/97 H 92 05/23/17 00:33 05/23/17 02:54 05/23/17 04:53 05/23/17 00:33 05/23/17 04:53 Intake & Output 05/21/17 05/22/17 05/23/17 06:59 06:59 06:59 Intake Total 800 Balance 800 General appearance: PRESENT: severe distress, thin Head exam: PRESENT: atraumatic, normocephalic Eye exam: PRESENT: conjunctiva pink, EOMI, PERRLA Ear exam: PRESENT: normal external ear exam Mouth exam: PRESENT: moist Neck exam: PRESENT: full ROM. ABSENT: JVD, lymphadenopathy, tenderness Respiratory exam: PRESENT: tachypnea, wheezes Cardiovascular exam: PRESENT: tachycardia. ABSENT: diastolic murmur, systolic murmur Vascular exam: PRESENT: pallor, other - Dose and knees appear purplish GI/Abdominal exam: PRESENT: normal bowel sounds, soft. ABSENT: tenderness Neurological exam: PRESENT: awake. ABSENT: oriented to person, oriented to place, oriented to time Skin exam: PRESENT: mottled Results Laboratory Results: 05/23/17 04:16 05/23/17 04:16 05/22/17 05/22/17 05/22/17 06:05 06:05 06:05 WBC Cancelled RBC Cancelled Hgb Cancelled Hct Cancelled MCV Cancelled MCH Cancelled MCHC Cancelled RDW Cancelled Plt Count Cancelled Seg Neutrophils % Cancelled Lymphocytes % Cancelled Monocytes % Cancelled Eosinophils % Cancelled Basophils % Cancelled Absolute Neutrophils Cancelled Absolute Lymphocytes Cancelled Absolute Monocytes Cancelled Absolute Eosinophils Cancelled Absolute Basophils Cancelled Carbonic Acid HCO3/H2CO3 Ratio ABG pH ABG pCO2 ABG pO2 ABG HCO3 ABG O2 Saturation ABG Base Excess FiO2 Sodium 137.2 Potassium 3.1 L Chloride 107 Carbon Dioxide 16 L Anion Gap 14 BUN 29 H Creatinine 0.41 L Est GFR ( Amer) > 60 Est GFR (Non-Af Amer) > 60 Glucose 136 H Lactic Acid Calcium 7.4 L Phosphorus 2.6 Magnesium Total Bilirubin AST ALT Alkaline Phosphatase Total Protein Albumin TSH 0.12 L Free T4 1.40 Free T3 pg/mL 1.22 L 05/22/17 05/22/17 05/23/17 06:05 08:47 01:02 WBC 6.4 RBC 3.90 Hgb 11.5 L Hct 34.1 L MCV 88 MCH 29.5 MCHC 33.7 RDW 13.7 Plt Count 160 Seg Neutrophils % Not Reportable Lymphocytes % Not Reportable Monocytes % Not Reportable Eosinophils % Not Reportable Basophils % Not Reportable Absolute Neutrophils Not Reportable Absolute Lymphocytes Not Reportable Absolute Monocytes Not Reportable Absolute Eosinophils Not Reportable Absolute Basophils Not Reportable Carbonic Acid 0.92 L HCO3/H2CO3 Ratio 17:1 ABG pH 7.34 L ABG pCO2 30.5 L ABG pO2 48.7 L ABG HCO3 16.2 L ABG O2 Saturation 82.9 L ABG Base Excess -8.3 FiO2 41% Sodium Potassium Chloride Carbon Dioxide Anion Gap BUN Creatinine Est GFR ( Amer) Est GFR (Non-Af Amer) Glucose Lactic Acid Calcium Phosphorus Magnesium 1.3 L Total Bilirubin AST ALT Alkaline Phosphatase Total Protein Albumin TSH Free T4 Free T3 pg/mL 05/23/17 05/23/17 05/23/17 03:20 04:16 04:16 WBC 4.4 RBC 4.12 Hgb 11.9 L Hct 37.4 MCV 91 MCH 28.8 MCHC 31.7 L RDW 14.1 H Plt Count 250 Seg Neutrophils % Not Reportable Lymphocytes % Not Reportable Monocytes % Not Reportable Eosinophils % Not Reportable Basophils % Not Reportable Absolute Neutrophils Not Reportable Absolute Lymphocytes Not Reportable Absolute Monocytes Not Reportable Absolute Eosinophils Not Reportable Absolute Basophils Not Reportable Carbonic Acid 0.91 L HCO3/H2CO3 Ratio 9:1 ABG pH 7.05 L* ABG pCO2 30.3 L ABG pO2 82.7 ABG HCO3 8.3 L ABG O2 Saturation 91.1 L ABG Base Excess -20.9 FiO2 50% Sodium 148.9 H Potassium 6.9 H* D Chloride 110 H Carbon Dioxide 17 L Anion Gap 22 H BUN 20 Creatinine 0.69 Est GFR ( Amer) > 60 Est GFR (Non-Af Amer) > 60 Glucose 219 H Lactic Acid Calcium 8.0 L Phosphorus Magnesium Total Bilirubin 1.0 AST 63 H ALT 26 Alkaline Phosphatase 107 Total Protein 5.7 L Albumin 3.0 L TSH Free T4 Free T3 pg/mL 05/23/17 05/23/17 04:16 04:16 WBC RBC Hgb Hct MCV MCH MCHC RDW Plt Count Seg Neutrophils % Lymphocytes % Monocytes % Eosinophils % Basophils % Absolute Neutrophils Absolute Lymphocytes Absolute Monocytes Absolute Eosinophils Absolute Basophils Carbonic Acid HCO3/H2CO3 Ratio ABG pH ABG pCO2 ABG pO2 ABG HCO3 ABG O2 Saturation ABG Base Excess FiO2 Sodium Potassium Chloride Carbon Dioxide Anion Gap BUN Creatinine Est GFR ( Amer) Est GFR (Non-Af Amer) Glucose Lactic Acid 11.5 H Calcium Phosphorus 4.0 Magnesium Total Bilirubin AST ALT Alkaline Phosphatase Total Protein Albumin TSH Free T4 Free T3 pg/mL 05/23/17 05/23/17 04:16 04:16 Creatine Kinase 116 CK-MB (CK-2) 7.91 H Troponin I 0.596 Impressions: Chest X-Ray 05/21/17 14:05 IMPRESSION: 1 Patchy areas of consolidation in the right mid-lower lung zones. Considerations for this finding includes pneumonia. A follow-up examination after treatment to document for interval resolution. Assessment & Plan - Diagnosis (1) Acute respiratory failure with hypoxia Is this a current diagnosis for this admission?: Yes Plan: Transfer to ICU and she will require intubation. Patient extremely debilitated (2) Atrial fibrillation and flutter Is this a current diagnosis for this admission?: Yes Plan: Stable. Currently tachycardic due to sepsis (3) Hypokalemia Is this a current diagnosis for this admission?: Yes Plan: Now hyperkalemic and to discontinue IV fluids supplemented with potassium (4) Malnourished Qualifiers: Malnutrition type: protein-calorie malnutrition Protein-calorie malnutrition severity: moderate Qualified Code(s): E44.0 - Moderate protein- calorie malnutrition Is this a current diagnosis for this admission?: Yes Plan: Dietitian consult pending. Patient lacks muscle mass and she will not survive CPR (5) Pneumonia Qualifiers: Pneumonia type: due to unspecified organism Laterality: right Lung location: unspecified part of lung Qualified Code(s): J18.9 - Pneumonia, unspecified organism Is this a current diagnosis for this admission?: Yes Plan: Continue vancomycin and Levaquin (6) Sepsis Qualifiers: Sepsis type: sepsis due to unspecified organism Qualified Code(s): A41.9 - Sepsis, unspecified organism Is this a current diagnosis for this admission?: Yes Plan: Patient had progressed to severe sepsis. She recovered require ICU care. Concern about discoloration of toes since if progressing may turn gangrenous (7) Tobacco abuse Is this a current diagnosis for this admission?: Yes Plan: Had been educated about quitting (8) Alcohol use Is this a current diagnosis for this admission?: Yes Plan: So far no signs of withdrawal (9) Hyperkalemia Is this a current diagnosis for this admission?: Yes Plan: Had been administer calcium gluconate and will trend. - Time Time Spent with patient: 25-34 minutes Medications reviewed and adjusted accordingly: Yes Anticipated discharge: Other - May be discharged to [facility] - Inpatient Certification Based on my medical assessment, after consideration of the patient's comorbidities, presenting symptoms, or acuity I expect that the services needed warrant INPATIENT care.: Yes I certify that my determination is in accordance with my understanding of Medicare's requirements for reasonable and necessary INPATIENT services [42 CFR 412.3e].: Yes Medical Necessity: Need Close Monitoring Due to Risk of Patient Decompensation, Need For IV Fluids, Need For Continuous Telemetry Monitoring, Need for Nebulizer Therapy and Monitoring of Response, Need for IV Antibiotics
--- NOTE | 2017-05-23 16:09 | Progress Note ---
Provider Note Provider Note: Talk to . Tate Hillman Jessa regarding DNR status. He agrees to recind the full CODE STATUS since he agrees not wanting any broken bones and further damage or injury and the event patient coding
--- NOTE | 2017-05-23 16:26 | RADIOLOGY REPORT (SQ) ---
EXAM DESCRIPTION: CHEST SINGLE VIEW COMPLETED DATE/TIME: 05/23/2017 4:14 pm REASON FOR STUDY: respiratory failure COMPARISON: 05/23/2017 EXAM PARAMETERS: NUMBER OF VIEWS: One view. TECHNIQUE: Single frontal radiographic view of the chest acquired. RADIATION DOSE: NA LIMITATIONS: None. FINDINGS: LUNGS AND PLEURA: Consolidative process in the right lower lobe appears essentially unchan ged. On the current study there is some blunting of the left costophrenic angle suggesting a tiny le ft pleural effusion. Remaining lung john are clear. Previously described chronic changes appears stable. MEDIASTINUM AND HILAR STRUCTURES: No masses. Contour normal. HEART AND VASCULAR STRUCTURES: The configuration of the heart and mediastinal structures is unchanged BONES: No acute findings. HARDWARE: Endotracheal tube, central line, and NG tube are unchanged in position OTHER: No other significant finding. IMPRESSION: Consolidative process in the right lower lobe appears essentially unchanged. On the cur rent study there is some blunting of the left costophrenic angle suggesting a tiny left pleural effus ion. Other findings as noted above TECHNICAL DOCUMENTATION: JOB ID: [id number] [employer]- All Rights Reserved Reading location - IP/workstation name: [email or web address]
[2017-05-23] MEDS: DILTIAZEM HCL 180 MG CAPSULE.CR PO SCH (16:30)
[2017-05-23] MEDS ORDERED: PROMETHAZINE HCL 25 MG TABLET NG PRN (17:00)
[2017-05-23] MEDS ORDERED: ACETAMINOPHEN 325 MG TABLET NG PRN (17:00)
[2017-05-23] MEDS: ENOXAPARIN SODIUM INJ 40 MG/0.4 ML DISP.SYRIN SUBCUT SCH (17:35)
[2017-05-23] MEDS: DEXTROSE 5%-WATER 250 ML with PHENYLEPHRINE HCL 40 MG IV PRN ×4 (17:40→21:23)
[2017-05-23] MEDS ORDERED: LEVOFLOXACIN 750 MG/D5W RTU 750 MG/150 ML RTUPB IV SCH (18:00)
[2017-05-23 19:15] LABS: CREATINE KINASE MB 10.6 ng/mL (<4.55)
[2017-05-23 19:27] LABS: TROPONIN I 0.437 ng/mL
--- NOTE | 2017-05-23 19:47 | PDOC CONSULTATION ---
Consultation Consult Date: 05/23/17 Attending physician:: NORMA HENRIQUEZ Consult reason:: pna/sepsis/ History of Present Illness Admission Date/PCP: 05/21/17 16:36 HONEY ISAACS NP History of Present Illness: ADA LANDERS is a 82 year old female presents to the emergency department with acute hypoxic respiratory failure secondary to pneumonia. Most of the history was actually obtained from the patient's . Apparently, the patient has been feeling poorly. The has noted that she has been breathing hard lately and she has not been eating. Further history obtained from the patient indicates that she has been coughing up a lot of clear phlegm. She does not have any fevers. She states that she feels cold but this is normal for her. She has not had any sweats. Both the patient's and their daughter have been ill with a cough and sore throat. The patient's only other symptom on review of systems is diarrhea that started with the onset of this illness. The patient presented to the emergency department her room air saturation was in the 60s and she was placed on BiPAP.She became hypoxic acidotic was taken to ICU and intubated Past Medical History Cardiac Medical History: Reports: Atrial Fibrillation, Hyperlipidema, Hypertension Denies: Myocardial Infarction Pulmonary Medical History: Denies: Asthma Neurological Medical History: Denies: Seizures Endocrine Medical History: Reports: Hypothyroidism GI Medical History: Denies: Hepatitis, Hiatal Hernia Musculoskeltal Medical History: Reports: Arthritis Hematology: Denies: Anemia, Sickle Cell Disease Past Surgical History Past Surgical History: Reports: Hysterectomy - partial Denies: Mastectomy, Pacemaker Social History Information Source: [facility] Records Smoking Status: Former Smoker Frequency of Alcohol Use: None Hx Recreational Drug Use: No Drugs: None Hx Prescription Drug Abuse: No - Advance Directive Resuscitation Status: Full Code Family History Parental Family History Reviewed: No Children Family History Reviewed: No Sibling(s) Family History Reviewed.: No Medication/Allergy Home Medications: Aspirin [Ecotrin 81 mg EC Tablet] 81 mg PO DAILY 05/21/17 Calcitonin,Henderson,Synthetic [Calcitonin-Henderson] 1 spray NASL DAILY 05/21/17 Diltiazem HCl [Diltiazem 24Hr Cd] 180 mg PO DAILY 05/21/17 Hydrochlorothiazide [Hydrodiuril 50 mg Tablet] 50 mg PO DAILY 05/21/17 Levothyroxine Sodium [Synthroid 0.075 mg Tablet] 0.075 mg PO Q6AM 05/21/17 Multivitamin [Tab-A-José Miguel (Multiple Vitamin) Tablet] 1 tab PO DAILY 05/21/17 Potassium Chloride [Klor-Con 10 Meq Tablet.sa] 10 meq PO DAILY 05/21/17 Simvastatin [Zocor 20 mg Tablet] 20 mg PO DAILY 05/21/17 Allergies/Adverse Reactions: codeine [Codeine] Allergy (Verified 11/17/15 09:14) Generalized Itching Review of Systems ROS unobtainable: Due to endotracheal tube Physical Exam Vital Signs: Temp Pulse Resp BP Pulse Ox 98.3 F 133 H 33 H 91/55 L 88 L 05/23/17 00:33 05/23/17 08:29 05/23/17 08:29 05/23/17 08:29 05/23/17 08:22 Intake & Output 05/22/17 05/23/17 05/24/17 06:59 06:59 06:59 Intake Total 800 Balance 800 General appearance: PRESENT: disheveled, mild distress, thin, well-developed Head exam: PRESENT: atraumatic, normocephalic Eye exam: PRESENT: conjunctiva pale. ABSENT: nystagmus, periorbital swelling, scleral icterus Mouth exam: PRESENT: dry mucosa, neck supple, tongue midline, other - ET tube Neck exam: ABSENT: carotid bruit, JVD, lymphadenopathy, thyromegaly, tracheal deviation, tracheostomy Respiratory exam: PRESENT: decreased breath sounds, prolonged expiratory phas, rales, rhonchi, symmetrical, tachypnea, unlabored, wheezes. ABSENT: retraction , stridor Cardiovascular exam: PRESENT: RRR, +S1, +S2, tachycardia Pulses: PRESENT: normal radial pulses GI/Abdominal exam: PRESENT: diminished bowel sounds, soft Extremities exam: ABSENT: clubbing, +1 edema Musculoskeletal exam: ABSENT: deformity, dislocation Neurological exam: ABSENT: alert, awake Skin exam: PRESENT: dry, warm Results Laboratory Results: 05/23/17 04:16 05/23/17 04:16 05/22/17 05/22/17 05/23/17 06:05 08:47 01:02 WBC 6.4 RBC 3.90 Hgb 11.5 L Hct 34.1 L MCV 88 MCH 29.5 MCHC 33.7 RDW 13.7 Plt Count 160 Seg Neutrophils % Lymphocytes % Monocytes % Eosinophils % Basophils % Absolute Neutrophils Absolute Lymphocytes Absolute Monocytes Absolute Eosinophils Absolute Basophils Carbonic Acid 0.92 L HCO3/H2CO3 Ratio 17:1 ABG pH 7.34 L ABG pCO2 30.5 L ABG pO2 48.7 L ABG HCO3 16.2 L ABG O2 Saturation 82.9 L ABG Base Excess -8.3 FiO2 41% Sodium Potassium Chloride Carbon Dioxide Anion Gap BUN Creatinine Est GFR ( Amer) Est GFR (Non-Af Amer) Glucose Lactic Acid Calcium Phosphorus Magnesium 1.3 L Total Bilirubin AST ALT Alkaline Phosphatase Total Protein Albumin 05/23/17 05/23/17 05/23/17 03:20 04:16 04:16 WBC 4.4 RBC 4.12 Hgb 11.9 L Hct 37.4 MCV 91 MCH 28.8 MCHC 31.7 L RDW 14.1 H Plt Count 250 Seg Neutrophils % Not Reportable Lymphocytes % Not Reportable Monocytes % Not Reportable Eosinophils % Not Reportable Basophils % Not Reportable Absolute Neutrophils Not Reportable Absolute Lymphocytes Not Reportable Absolute Monocytes Not Reportable Absolute Eosinophils Not Reportable Absolute Basophils Not Reportable Carbonic Acid 0.91 L HCO3/H2CO3 Ratio 9:1 ABG pH 7.05 L* ABG pCO2 30.3 L ABG pO2 82.7 ABG HCO3 8.3 L ABG O2 Saturation 91.1 L ABG Base Excess -20.9 FiO2 50% Sodium 148.9 H Potassium 6.9 H* D Chloride 110 H Carbon Dioxide 17 L Anion Gap 22 H BUN 20 Creatinine 0.69 Est GFR ( Amer) > 60 Est GFR (Non-Af Amer) > 60 Glucose 219 H Lactic Acid Calcium 8.0 L Phosphorus Magnesium Total Bilirubin 1.0 AST 63 H ALT 26 Alkaline Phosphatase 107 Total Protein 5.7 L Albumin 3.0 L 05/23/17 05/23/17 05/23/17 04:16 04:16 09:00 WBC RBC Hgb Hct MCV MCH MCHC RDW Plt Count Seg Neutrophils % Lymphocytes % Monocytes % Eosinophils % Basophils % Absolute Neutrophils Absolute Lymphocytes Absolute Monocytes Absolute Eosinophils Absolute Basophils Carbonic Acid 0.84 L HCO3/H2CO3 Ratio 16:1 ABG pH 7.32 L ABG pCO2 27.8 L ABG pO2 85.0 ABG HCO3 14.1 L ABG O2 Saturation 95.9 ABG Base Excess -10.6 FiO2 70% Sodium Potassium Chloride Carbon Dioxide Anion Gap BUN Creatinine Est GFR ( Amer) Est GFR (Non-Af Amer) Glucose Lactic Acid 11.5 H Calcium Phosphorus 4.0 Magnesium Total Bilirubin AST ALT Alkaline Phosphatase Total Protein Albumin 05/23/17 05/23/17 04:16 04:16 Creatine Kinase 116 CK-MB (CK-2) 7.91 H Troponin I 0.596 Impressions: Chest X-Ray 05/21/17 14:05 IMPRESSION: 1 Patchy areas of consolidation in the right mid-lower lung zones. Considerations for this finding includes pneumonia. A follow-up examination after treatment to document for interval resolution. Assessment & Plan - Diagnosis (1) Acute respiratory failure with hypoxia Is this a current diagnosis for this admission?: Yes Plan: intubated req high FIO2 (2) Atrial fibrillation and flutter Is this a current diagnosis for this admission?: Yes Plan: stable (3) Hyperkalemia Is this a current diagnosis for this admission?: Yes Plan: repeat SK if necessary lasix+glucose+insulin+Ca++ (4) Malnourished Qualifiers: Malnutrition type: protein-calorie malnutrition Protein-calorie malnutrition severity: moderate Qualified Code(s): E44.0 - Moderate protein- calorie malnutrition Is this a current diagnosis for this admission?: Yes (5) Pneumonia Qualifiers: Pneumonia type: due to unspecified organism Laterality: right Lung location: unspecified part of lung Qualified Code(s): J18.9 - Pneumonia, unspecified organism Is this a current diagnosis for this admission?: Yes Plan: GNR in sputum (6) Sepsis Qualifiers: Sepsis type: sepsis due to unspecified organism Qualified Code(s): A41.9 - Sepsis, unspecified organism Is this a current diagnosis for this admission?: Yes (7) Tobacco abuse Is this a current diagnosis for this admission?: Yes Plan: stop smoking (8) Hypothyroidism Qualifiers: Hypothyroidism type: unspecified Qualified Code(s): E03.9 - Hypothyroidism , unspecified Is this a current diagnosis for this admission?: Yes Plan: chronic (9) Tobacco dependency Is this a current diagnosis for this admission?: Yes Plan: transdermal nicotine - Time Total Critical Time (Minutes): 120
[2017-05-23] MEDS ORDERED: TOBRAMYCIN SULFATE INJ 80 MG/2 ML VIAL NEB SCH (20:00)
[2017-05-23] MEDS ORDERED: NORMAL SALINE 1000 ML 1,000 ML IV ONE ×2 (20:21→21:15)
[2017-05-23] MEDS: TOBRAMYCIN SULFATE NEB 40 MG/ML 30 ML NEB SCH (20:54)
[2017-05-23] MEDS: FAMOTIDINE INJ/PF 20 MG/2 ML SDV IV SCH (21:23)
[2017-05-23 22:32] LABS: ARTERIAL BLOOD BASE EXCESS -14.2 mmol/L; ARTERIAL BLOOD H2CO3 0.92 mmol/L (1.05-1.35); ARTERIAL BLOOD HCO3 12.2 mmol/L (20-26); ARTERIAL BLOOD O2 SATURATION 98.8 % (94-98); ARTERIAL BLOOD PCO2 30.7 mmHg (35-45); ARTERIAL BLOOD PH 7.22 (7.35-7.45); ARTERIAL BLOOD TOTAL CO2 13.1 mmol/L (21-25)
[2017-05-23 22:33] LABS: ARTERIAL BLOOD FIO2 60%
[2017-05-24 00:06] LABS: CREATINE KINASE MB 9.67 ng/mL (<4.55)
[2017-05-24 00:10] LABS: TROPONIN I 0.294 ng/mL
[2017-05-24] MEDS ORDERED: DOPAMINE HCL 800 MG/D5W 250 ML IV PRN (00:45)
[2017-05-24] MEDS: METHYLPREDNISOLONE INJ 40 MG/1 ML SDV IV SCH ×3 (01:20→17:38)
[2017-05-24] MEDS: DEXTROSE 5%-WATER 250 ML with PHENYLEPHRINE HCL 40 MG IV PRN ×6 (01:35→11:11)
[2017-05-24] MEDS ORDERED: DEXTROSE 5%-WATER 1000 ML 1,000 ML with SODIUM BICARBONATE 150 MEQ IV PRN ×2 (01:36)
[2017-05-24] MEDS: IPRATROPIUM/ALBUTEROL 0.5-2.5 MG/3 ML AMPUL NEB SCH ×4 (02:26→21:09)
[2017-05-24] MEDS ORDERED: NORMAL SALINE 1000 ML 1,000 ML IV PRN (02:43)
[2017-05-24 05:07] LABS: ARTERIAL BLOOD BASE EXCESS -10.3 mmol/L; ARTERIAL BLOOD FIO2 50%; ARTERIAL BLOOD H2CO3 0.88 mmol/L (1.05-1.35); ARTERIAL BLOOD HCO3 14.6 mmol/L (20-26); ARTERIAL BLOOD PCO2 29.4 mmHg (35-45); ARTERIAL BLOOD PH 7.32 (7.35-7.45); ARTERIAL BLOOD PO2 163.7 mmHg (80-100); ARTERIAL BLOOD TOTAL CO2 15.5 mmol/L (21-25)
[2017-05-24 05:12] LABS: HEMATOCRIT 31.1 % (36.0-47.0); MEAN CORPUSCULAR HEMOGLOBIN 29.1 pg (27.0-33.4); MEAN CORPUSCULAR HGB CONC 32.1 g/dL (32.0-36.0); MEAN CORPUSCULAR VOLUME 91 fl (80-97); PLATELET COUNT 133 10^3/uL (150-450); RED BLOOD COUNT 3.42 10^6/uL (3.72-5.28); RED CELL DISTRIBUTION WIDTH 14.1 % (11.5-14.0); WHITE BLOOD COUNT 4.3 10^3/uL (4.0-10.5)
[2017-05-24] MEDS: MIDAZOLAM HCL 50 MG/100 ML RTUINJ IV PRN ×2 (05:24→16:24)
[2017-05-24 05:27] LABS: ALBUMIN 1.9 g/dL (3.5-5.0); ALKALINE PHOSPHATASE 82 U/L (38-126); ANION GAP 9 (5-19); BILIRUBIN,DIRECT 0.5 mg/dL (0.0-0.4); BILIRUBIN,TOTAL 0.5 mg/dL (0.2-1.3); BLOOD UREA NITROGEN 23 mg/dL (7-20); CARBON DIOXIDE 17 mmol/L (22-30); CHLORIDE 117 mmol/L (98-107); GLUCOSE 175 mg/dL (75-110); PHOSPHORUS 2.5 mg/dL (2.5-4.5); POTASSIUM 5.1 mmol/L (3.6-5.0); SODIUM 143.1 mmol/L (137-145); TOTAL PROTEIN 4.2 g/dL (6.3-8.2)
[2017-05-24 05:31] LABS: ABSOLUTE LYMPHOCYTES# (MANUAL) 0.6 10^3/uL (0.5-4.7); ABSOLUTE MONOCYTES # (MANUAL) 0.3 10^3/uL (0.1-1.4); ABSOLUTE NEUTROPHILS# (MANUAL) 3.4 10^3/uL (1.7-8.2); BAND NEUTROPHILS % (MANUAL) 4 % (3-5); BASOPHILS % (MANUAL) 0 % (0-2); EOSINOPHILS % (MANUAL) 0 % (0-6); LYMPHOCYTES % (MANUAL) 15 % (13-45); MONOCYTES % (MANUAL) 6 % (3-13); SEGMENTED NEUTROPHILS % (MAN) 75 % (42-78); TOTAL CELLS COUNTED 100
[2017-05-24 05:33] LABS: ANISOCYTOSIS SLIGHT; OVALOCYTES 1+; PLATELET COMMENT ADEQUATE; POIKILOCYTOSIS SLIGHT; TOXIC GRANULATION SLIGHT; TOXIC VACUOLATION PRESENT
[2017-05-24 05:43] LABS: ALANINE AMINOTRANSFERASE 1185 U/L (9-52); ASPARTATE AMINO TRANSFERASE 3494 U/L (14-36)
[2017-05-24] MEDS ORDERED: MAGNESIUM SULFATE/D5W 1 GM/100 ML RTUPB IV ONE (05:47)
[2017-05-24] MEDS ORDERED: CALCIUM GLUCONATE 1000 MG/10 ML INJ IV ONE ×2 (06:27→22:00)
[2017-05-24 07:00] LABS: MYCOPLASMA PNEUMONIAE IGG AB 1362 U/mL (0-99); MYCOPLASMA PNEUMONIAE IGM AB <770 U/mL (0-769)
[2017-05-24] MEDS ORDERED: VANCOMYCIN HCL 750 MG in DEXTROSE 5%-WATER 250 ML IV SCH (08:00)
--- NOTE | 2017-05-24 08:13 | RADIOLOGY REPORT (SQ) ---
EXAM DESCRIPTION: CHEST SINGLE VIEW COMPLETED DATE/TIME: 05/24/2017 6:01 am REASON FOR STUDY: pna/sepsis COMPARISON: 05/23/2017. EXAM PARAMETERS: NUMBER OF VIEWS: One view. TECHNIQUE: Single frontal radiographic view of the chest acquired. RADIATION DOSE: NA LIMITATIONS: None. FINDINGS: LUNGS AND PLEURA: Consolidation in the right lower lobe unchanged. Chronic scarring in th e lung apices. MEDIASTINUM AND HILAR STRUCTURES: No masses. Contour normal. HEART AND VASCULAR STRUCTURES: Heart normal in size. Normal vasculature. BONES: No acute findings. HARDWARE: Stable endotracheal tube, nasogastric tube, and central line. OTHER: No other significant finding. IMPRESSION: NO CHANGE IN APPEARANCE OF THE CHEST. CONSOLIDATION RIGHT LOWER LOBE. TECHNICAL DOCUMENTATION: JOB ID: [id number] [employer]- All Rights Reserved Reading location - IP/workstation name: [email or web address]
[2017-05-24] MEDS: TOBRAMYCIN SULFATE NEB 40 MG/ML 30 ML NEB SCH ×2 (08:26→21:09)
[2017-05-24] MEDS: MAGNESIUM SULFATE/D5W 1 GM/100 ML RTUPB IV SCH ×3 (09:52→11:34)
[2017-05-24] MEDS ORDERED: ASPIRIN 81 MG TABLET, CHEWABLE NG SCH (10:00)
[2017-05-24] MEDS: ENOXAPARIN SODIUM INJ 40 MG/0.4 ML DISP.SYRIN SUBCUT SCH (10:25)
[2017-05-24] MEDS: DILTIAZEM HCL 180 MG CAPSULE.CR PO SCH (10:25)
[2017-05-24] MEDS: NORMAL SALINE 1000 ML 1,000 ML IV PRN ×2 (11:11→17:07)
--- NOTE | 2017-05-24 11:48 | PDOC PROGRESS REPORT ---
Subjective Progress Note for:: 05/24/17 Subjective:: awaiting chest tube removal Reason For Visit: ACUTE HYPOXIC RESPIRATORY FAILURE WITH PNEUMONIA Physical Exam Vital Signs: Temp Pulse Resp BP Pulse Ox 99.1 F 100 20 92/62 L 100 05/24/17 05:26 05/24/17 08:25 05/24/17 08:25 05/24/17 04:03 05/24/17 08:25 Intake & Output 05/23/17 05/24/17 05/25/17 06:59 06:59 06:59 Intake Total 800 8288 Output Total 490 125 Balance 800 7798 -125 Weight 54.9 kg General appearance: PRESENT: no acute distress, cooperative, disheveled, well- developed Head exam: PRESENT: atraumatic, normocephalic Eye exam: PRESENT: conjunctiva pale, EOMI. ABSENT: nystagmus, periorbital swelling, scleral icterus Mouth exam: PRESENT: dry mucosa, neck supple, tongue midline Neck exam: ABSENT: carotid bruit, JVD, lymphadenopathy, thyromegaly, tracheal deviation, tracheostomy Respiratory exam: PRESENT: decreased breath sounds, prolonged expiratory phas, rhonchi, symmetrical, unlabored, other - R chest tube. ABSENT: rales, retraction, stridor, tachypnea Cardiovascular exam: PRESENT: RRR, +S1, +S2 Pulses: PRESENT: normal radial pulses GI/Abdominal exam: PRESENT: diminished bowel sounds, soft - [id number] Extremities exam: ABSENT: calf tenderness, clubbing, joint swelling Musculoskeletal exam: ABSENT: deformity, dislocation Neurological exam: PRESENT: alert, awake Psychiatric exam: PRESENT: flat affect Skin exam: PRESENT: dry, warm Results Laboratory Results: 05/24/17 04:20 05/24/17 04:20 05/23/17 05/23/17 05/23/17 09:00 09:34 09:34 WBC RBC Hgb Hct MCV MCH MCHC RDW Plt Count Seg Neutrophils % Lymphocytes % Monocytes % Eosinophils % Basophils % Absolute Neutrophils Absolute Lymphocytes Absolute Monocytes Absolute Eosinophils Absolute Basophils Carbonic Acid 0.84 L HCO3/H2CO3 Ratio 16:1 ABG pH 7.32 L ABG pCO2 27.8 L ABG pO2 85.0 ABG HCO3 14.1 L ABG O2 Saturation 95.9 ABG Base Excess -10.6 FiO2 70% Sodium Cancelled Potassium Cancelled Chloride Cancelled Carbon Dioxide Cancelled Anion Gap Cancelled BUN Cancelled Creatinine Cancelled Est GFR ( Amer) Cancelled Est GFR (Non-Af Amer) Cancelled Glucose Cancelled Lactic Acid 10.5 H Calcium Cancelled Phosphorus Magnesium Cancelled Total Bilirubin AST ALT Alkaline Phosphatase Total Protein Albumin 05/23/17 05/23/17 05/23/17 10:31 11:19 21:30 WBC RBC Hgb Hct MCV MCH MCHC RDW Plt Count Seg Neutrophils % Lymphocytes % Monocytes % Eosinophils % Basophils % Absolute Neutrophils Absolute Lymphocytes Absolute Monocytes Absolute Eosinophils Absolute Basophils Carbonic Acid 1.00 L 0.92 L HCO3/H2CO3 Ratio 16:1 13:1 ABG pH 7.31 L 7.22 L ABG pCO2 33.2 L 30.7 L ABG pO2 208.0 H 167.0 H ABG HCO3 16.2 L 12.2 L ABG O2 Saturation 99.3 H 98.8 H ABG Base Excess -9.2 -14.2 FiO2 100% 60% Sodium 148.2 H Potassium 5.2 H D Chloride 116 H Carbon Dioxide 20 L Anion Gap 12 BUN 25 H Creatinine 0.72 Est GFR ( Amer) > 60 Est GFR (Non-Af Amer) > 60 Glucose 141 H Lactic Acid Calcium 8.0 L Phosphorus Magnesium 1.6 Total Bilirubin AST ALT Alkaline Phosphatase Total Protein Albumin 05/24/17 05/24/17 05/24/17 04:13 04:20 04:20 WBC 4.3 RBC 3.42 L Hgb 10.0 L Hct 31.1 L MCV 91 MCH 29.1 MCHC 32.1 RDW 14.1 H Plt Count 133 L Seg Neutrophils % Not Reportable Lymphocytes % Not Reportable Monocytes % Not Reportable Eosinophils % Not Reportable Basophils % Not Reportable Absolute Neutrophils Not Reportable Absolute Lymphocytes Not Reportable Absolute Monocytes Not Reportable Absolute Eosinophils Not Reportable Absolute Basophils Not Reportable Carbonic Acid 0.88 L HCO3/H2CO3 Ratio 16:1 ABG pH 7.32 L ABG pCO2 29.4 L ABG pO2 163.7 H ABG HCO3 14.6 L ABG O2 Saturation 99.0 H ABG Base Excess -10.3 FiO2 50% Sodium Cancelled Potassium Cancelled Chloride Cancelled Carbon Dioxide Cancelled Anion Gap Cancelled BUN Cancelled Creatinine Cancelled Est GFR ( Amer) Cancelled Est GFR (Non-Af Amer) Cancelled Glucose Cancelled Lactic Acid Calcium Cancelled Phosphorus Magnesium Total Bilirubin AST ALT Alkaline Phosphatase Total Protein Albumin 05/24/17 05/24/17 04:20 04:20 WBC RBC Hgb Hct MCV MCH MCHC RDW Plt Count Seg Neutrophils % Lymphocytes % Monocytes % Eosinophils % Basophils % Absolute Neutrophils Absolute Lymphocytes Absolute Monocytes Absolute Eosinophils Absolute Basophils Carbonic Acid HCO3/H2CO3 Ratio ABG pH ABG pCO2 ABG pO2 ABG HCO3 ABG O2 Saturation ABG Base Excess FiO2 Sodium 143.1 Potassium 5.1 H Chloride 117 H Carbon Dioxide 17 L Anion Gap 9 BUN 23 H Creatinine 0.64 Est GFR ( Amer) > 60 Est GFR (Non-Af Amer) > 60 Glucose 175 H Lactic Acid 4.2 H Calcium 6.0 L* Phosphorus 2.5 Magnesium 1.2 L* Total Bilirubin 0.5 AST 3494 H ALT 1185 H Alkaline Phosphatase 82 Total Protein 4.2 L Albumin 1.9 L 05/23/17 05/23/17 05/23/17 04:16 04:16 09:34 Creatine Kinase 116 Cancelled CK-MB (CK-2) 7.91 H Troponin I 0.596 05/23/17 05/23/17 05/23/17 09:34 09:34 11:19 Creatine Kinase Cancelled 158 H CK-MB (CK-2) Cancelled Troponin I Cancelled 05/23/17 05/23/17 05/23/17 11:19 18:00 21:05 Creatine Kinase 94 CK-MB (CK-2) 12.20 H 10.60 H Troponin I 0.781 0.437 05/23/17 05/23/17 23:30 23:30 Creatine Kinase 116 CK-MB (CK-2) 9.67 H Troponin I 0.294 Impressions: KUB X-Ray 05/23/17 09:16 IMPRESSION: NG tube with its tip in the left upper quadrant presumably at the level of the mid stomach. Other findings as noted above Chest X-Ray 05/24/17 06:00 IMPRESSION: NO CHANGE IN APPEARANCE OF THE CHEST. CONSOLIDATION RIGHT LOWER LOBE. Assessment & Plan - Diagnosis (1) Acute respiratory failure with hypoxia Is this a current diagnosis for this admission?: Yes Plan: intubated req high FIO2 (2) Atrial fibrillation and flutter Is this a current diagnosis for this admission?: Yes Plan: stable (3) Hyperkalemia Is this a current diagnosis for this admission?: Yes Plan: repeat SK if necessary lasix+glucose+insulin+Ca++ (4) Malnourished Qualifiers: Malnutrition type: protein-calorie malnutrition Protein-calorie malnutrition severity: moderate Qualified Code(s): E44.0 - Moderate protein- calorie malnutrition Is this a current diagnosis for this admission?: Yes (5) Pneumonia Qualifiers: Pneumonia type: due to unspecified organism Laterality: right Lung location: unspecified part of lung Qualified Code(s): J18.9 - Pneumonia, unspecified organism Is this a current diagnosis for this admission?: Yes Plan: GNR in sputum (6) Sepsis Qualifiers: Sepsis type: sepsis due to unspecified organism Qualified Code(s): A41.9 - Sepsis, unspecified organism Is this a current diagnosis for this admission?: Yes (7) Tobacco abuse Is this a current diagnosis for this admission?: Yes Plan: stop smoking (8) Hypothyroidism Qualifiers: Hypothyroidism type: unspecified Qualified Code(s): E03.9 - Hypothyroidism , unspecified Is this a current diagnosis for this admission?: Yes Plan: chronic (9) Tobacco dependency Is this a current diagnosis for this admission?: Yes Plan: transdermal nicotine
--- NOTE | 2017-05-24 18:35 | PDOC PROGRESS REPORT ---
Subjective Progress Note for:: 05/24/17 Subjective:: Unable to obtain due to patient's mental status. Review of system All organ systems evaluated and negative except as in subjective All significant laboratories and diagnostics have been reviewed Reason For Visit: ACUTE HYPOXIC RESPIRATORY FAILURE WITH PNEUMONIA Physical Exam Vital Signs: Temp Pulse Resp BP Pulse Ox 99.1 F 118 H 20 92/62 L 100 05/24/17 05:26 05/24/17 02:26 05/24/17 04:03 05/24/17 04:03 05/24/17 04:03 Intake & Output 05/22/17 05/23/17 05/24/17 06:59 06:59 06:59 Intake Total 800 2516 Output Total 490 Balance 800 2026 Weight 54.9 kg General appearance: PRESENT: other - Intubated and sedated Head exam: PRESENT: atraumatic, normocephalic Eye exam: PRESENT: conjunctiva pink, EOMI, PERRLA Ear exam: PRESENT: normal external ear exam Mouth exam: PRESENT: moist Neck exam: ABSENT: JVD, lymphadenopathy, tenderness Respiratory exam: PRESENT: clear to auscultation pavel Cardiovascular exam: PRESENT: tachycardia. ABSENT: diastolic murmur, systolic murmur Vascular exam: PRESENT: pallor GI/Abdominal exam: PRESENT: normal bowel sounds, soft. ABSENT: tenderness Extremities exam: PRESENT: other - Purple toes Musculoskeletal exam: ABSENT: ambulatory Neurological exam: PRESENT: other - Patient intubated and sedated Psychiatric exam: PRESENT: other - Patient intubated and sedated Results Laboratory Results: 05/24/17 04:20 05/23/17 05/23/17 05/23/17 09:00 09:34 09:34 WBC RBC Hgb Hct MCV MCH MCHC RDW Plt Count Seg Neutrophils % Lymphocytes % Monocytes % Eosinophils % Basophils % Absolute Neutrophils Absolute Lymphocytes Absolute Monocytes Absolute Eosinophils Absolute Basophils Carbonic Acid 0.84 L HCO3/H2CO3 Ratio 16:1 ABG pH 7.32 L ABG pCO2 27.8 L ABG pO2 85.0 ABG HCO3 14.1 L ABG O2 Saturation 95.9 ABG Base Excess -10.6 FiO2 70% Sodium Cancelled Potassium Cancelled Chloride Cancelled Carbon Dioxide Cancelled Anion Gap Cancelled BUN Cancelled Creatinine Cancelled Est GFR ( Amer) Cancelled Est GFR (Non-Af Amer) Cancelled Glucose Cancelled Lactic Acid 10.5 H Calcium Cancelled Phosphorus Magnesium Cancelled Total Bilirubin AST ALT Alkaline Phosphatase Total Protein Albumin 05/23/17 05/23/17 05/23/17 10:31 11:19 21:30 WBC RBC Hgb Hct MCV MCH MCHC RDW Plt Count Seg Neutrophils % Lymphocytes % Monocytes % Eosinophils % Basophils % Absolute Neutrophils Absolute Lymphocytes Absolute Monocytes Absolute Eosinophils Absolute Basophils Carbonic Acid 1.00 L 0.92 L HCO3/H2CO3 Ratio 16:1 13:1 ABG pH 7.31 L 7.22 L ABG pCO2 33.2 L 30.7 L ABG pO2 208.0 H 167.0 H ABG HCO3 16.2 L 12.2 L ABG O2 Saturation 99.3 H 98.8 H ABG Base Excess -9.2 -14.2 FiO2 100% 60% Sodium 148.2 H Potassium 5.2 H D Chloride 116 H Carbon Dioxide 20 L Anion Gap 12 BUN 25 H Creatinine 0.72 Est GFR ( Amer) > 60 Est GFR (Non-Af Amer) > 60 Glucose 141 H Lactic Acid Calcium 8.0 L Phosphorus Magnesium 1.6 Total Bilirubin AST ALT Alkaline Phosphatase Total Protein Albumin 05/24/17 05/24/17 05/24/17 04:20 04:20 04:20 WBC 4.3 RBC 3.42 L Hgb 10.0 L Hct 31.1 L MCV 91 MCH 29.1 MCHC 32.1 RDW 14.1 H Plt Count 133 L Seg Neutrophils % Not Reportable Lymphocytes % Not Reportable Monocytes % Not Reportable Eosinophils % Not Reportable Basophils % Not Reportable Absolute Neutrophils Not Reportable Absolute Lymphocytes Not Reportable Absolute Monocytes Not Reportable Absolute Eosinophils Not Reportable Absolute Basophils Not Reportable Carbonic Acid 0.88 L HCO3/H2CO3 Ratio 16:1 ABG pH 7.32 L ABG pCO2 29.4 L ABG pO2 163.7 H ABG HCO3 14.6 L ABG O2 Saturation 99.0 H ABG Base Excess -10.3 FiO2 50% Sodium 143.1 Potassium 5.1 H Chloride 117 H Carbon Dioxide 17 L Anion Gap 9 BUN 23 H Creatinine 0.64 Est GFR ( Amer) > 60 Est GFR (Non-Af Amer) > 60 Glucose 175 H Lactic Acid Calcium 6.0 L* Phosphorus 2.5 Magnesium 1.2 L* Total Bilirubin 0.5 AST 3494 H ALT 1185 H Alkaline Phosphatase 82 Total Protein 4.2 L Albumin 1.9 L 05/24/17 04:20 WBC RBC Hgb Hct MCV MCH MCHC RDW Plt Count Seg Neutrophils % Lymphocytes % Monocytes % Eosinophils % Basophils % Absolute Neutrophils Absolute Lymphocytes Absolute Monocytes Absolute Eosinophils Absolute Basophils Carbonic Acid HCO3/H2CO3 Ratio ABG pH ABG pCO2 ABG pO2 ABG HCO3 ABG O2 Saturation ABG Base Excess FiO2 Sodium Potassium Chloride Carbon Dioxide Anion Gap BUN Creatinine Est GFR ( Amer) Est GFR (Non-Af Amer) Glucose Lactic Acid 4.2 H Calcium Phosphorus Magnesium Total Bilirubin AST ALT Alkaline Phosphatase Total Protein Albumin 05/23/17 05/23/17 05/23/17 04:16 04:16 09:34 Creatine Kinase 116 Cancelled CK-MB (CK-2) 7.91 H Troponin I 0.596 05/23/17 05/23/17 05/23/17 09:34 09:34 11:19 Creatine Kinase Cancelled 158 H CK-MB (CK-2) Cancelled Troponin I Cancelled 05/23/17 05/23/17 05/23/17 11:19 18:00 21:05 Creatine Kinase 94 CK-MB (CK-2) 12.20 H 10.60 H Troponin I 0.781 0.437 05/23/17 05/23/17 23:30 23:30 Creatine Kinase 116 CK-MB (CK-2) 9.67 H Troponin I 0.294 Impressions: KUB X-Ray 05/23/17 09:16 IMPRESSION: NG tube with its tip in the left upper quadrant presumably at the level of the mid stomach. Other findings as noted above Assessment & Plan - Diagnosis (1) Acute respiratory failure with hypoxia Is this a current diagnosis for this admission?: Yes Plan: Patient is intubated. She is having intermittent spontaneous respirations (2) Atrial fibrillation and flutter Is this a current diagnosis for this admission?: Yes Plan: Stable. Currently tachycardic due to sepsis (3) Hypokalemia Is this a current diagnosis for this admission?: Yes Plan: Resolved (4) Malnourished Qualifiers: Malnutrition type: protein-calorie malnutrition Protein-calorie malnutrition severity: moderate Qualified Code(s): E44.0 - Moderate protein- calorie malnutrition Is this a current diagnosis for this admission?: Yes Plan: Poor prognostic factor in the setting of sepsis (5) Pneumonia Qualifiers: Pneumonia type: due to unspecified organism Laterality: right Lung location: unspecified part of lung Qualified Code(s): J18.9 - Pneumonia, unspecified organism Is this a current diagnosis for this admission?: Yes Plan: Continue vancomycin and Levaquin (6) Sepsis Qualifiers: Sepsis type: sepsis due to unspecified organism Qualified Code(s): A41.9 - Sepsis, unspecified organism Is this a current diagnosis for this admission?: Yes Plan: Patient progress to septic shock. Currently requiring vasopressor support and fluids (7) Tobacco abuse Is this a current diagnosis for this admission?: Yes Plan: Had been educated about quitting (8) Alcohol use Is this a current diagnosis for this admission?: Yes Plan: Patient on propofol (9) Hyperkalemia Is this a current diagnosis for this admission?: Yes Plan: Improving - Time Time Spent with patient: 15-24 minutes Anticipated discharge: Acute Rehab Within: Other - Too early to tell - Inpatient Certification Based on my medical assessment, after consideration of the patient's comorbidities, presenting symptoms, or acuity I expect that the services needed warrant INPATIENT care.: Yes I certify that my determination is in accordance with my understanding of Medicare's requirements for reasonable and necessary INPATIENT services [42 CFR 412.3e].: Yes Medical Necessity: Need Close Monitoring Due to Risk of Patient Decompensation, Need For IV Fluids, Need for IV Antibiotics
--- NOTE | 2017-05-24 19:01 | EKG REPORT ---
SEVERITY:- DEFECTIVE ECG - FAST SINUS ARRHYTHMIA, RATE 79-127 LEFT ANTERIOR FASCICULAR BLOCK LOW VOLTAGE THROUGHOUT BORDERLINE R WAVE PROGRESSION, ANTERIOR LEADS NONSPECIFIC T ABNORMALITIES, DIFFUSE LEADS PROLONGED QT INTERVAL : Confirmed by: Tom Steve MD 24-May-2017 19:01:25
[2017-05-24 20:47] LABS: ARTERIAL BLOOD BASE EXCESS -7.6 mmol/L; ARTERIAL BLOOD H2CO3 0.81 mmol/L (1.05-1.35); ARTERIAL BLOOD HCO3 16.2 mmol/L (20-26); ARTERIAL BLOOD O2 SATURATION 98.6 % (94-98); ARTERIAL BLOOD PO2 127.6 mmHg (80-100)
[2017-05-24 21:00] LABS: ALANINE AMINOTRANSFERASE 953 U/L (9-52); ALKALINE PHOSPHATASE 95 U/L (38-126); ANION GAP 8 (5-19); BILIRUBIN,DIRECT 0.3 mg/dL (0.0-0.4); BILIRUBIN,TOTAL 0.4 mg/dL (0.2-1.3); BLOOD UREA NITROGEN 22 mg/dL (7-20); CARBON DIOXIDE 19 mmol/L (22-30); CHLORIDE 113 mmol/L (98-107); GLUCOSE 172 mg/dL (75-110); POTASSIUM 4.4 mmol/L (3.6-5.0); SODIUM 139.6 mmol/L (137-145); TOTAL PROTEIN 4.3 g/dL (6.3-8.2)
[2017-05-24 21:02] LABS: ARTERIAL BLOOD FIO2 35%
[2017-05-24] MEDS: FAMOTIDINE INJ/PF 20 MG/2 ML SDV IV SCH (21:03)
[2017-05-24 21:18] LABS: ASPARTATE AMINO TRANSFERASE 1892 U/L (14-36)
[2017-05-24 21:20] LABS: CALCIUM 6.5 mg/dL (8.4-10.2)
[2017-05-24] MEDS ORDERED: AZITHROMYCIN 500 MG in DEXTROSE 5%-WATER 250 ML IV SCH (22:00)
[2017-05-24 22:42] LABS: ABSOLUTE EOSINOPHILS # (AUTO) 0.1 10^3/uL (0.0-0.6); ABSOLUTE LYMPHOCYTES (AUTO) 0.6 10^3/uL (0.5-4.7); ABSOLUTE MONOCYTES (AUTO) 0.2 10^3/uL (0.1-1.4); ABSOLUTE NEUT (AUTO) 1.3 10^3/uL (1.7-8.2); BASOPHILS % (AUTO) 0.5 % (0-2); EOSINOPHILS % (AUTO) 3.4 % (0-6); HEMATOCRIT 30.2 % (36.0-47.0); HEMOGLOBIN 9.8 g/dL (12.0-15.5); LYMPHOCYTES % (AUTO) 25.8 % (13-45); MEAN CORPUSCULAR HEMOGLOBIN 29.1 pg (27.0-33.4); MEAN CORPUSCULAR HGB CONC 32.3 g/dL (32.0-36.0); MEAN CORPUSCULAR VOLUME 90 fl (80-97); RED BLOOD COUNT 3.36 10^6/uL (3.72-5.28); SEGMENTED NEUTROPHILS % (AUTO) 61.3 % (42-78); TOTAL CELLS COUNTED % (AUTO) 100 %
[2017-05-24 22:43] LABS: WHITE BLOOD COUNT 2.2 10^3/uL (4.0-10.5)
[2017-05-24 22:47] LABS: PLATELET COUNT 87 10^3/uL (150-450)
[2017-05-25] MEDS: MIDAZOLAM HCL 50 MG/100 ML RTUINJ IV PRN ×2 (00:34→09:45)
[2017-05-25] MEDS: NORMAL SALINE 1000 ML 1,000 ML IV PRN ×2 (00:34→05:45)
[2017-05-25] MEDS: METHYLPREDNISOLONE INJ 40 MG/1 ML SDV IV SCH ×2 (02:35→22:14)
[2017-05-25] MEDS: IPRATROPIUM/ALBUTEROL 0.5-2.5 MG/3 ML AMPUL NEB SCH ×4 (02:46→20:29)
[2017-05-25] MEDS ORDERED: NORMAL SALINE 1000 ML 1,000 ML IV ONE (04:17)
[2017-05-25 04:59] LABS: ARTERIAL BLOOD BASE EXCESS -9.8 mmol/L; ARTERIAL BLOOD H2CO3 0.78 mmol/L (1.05-1.35); ARTERIAL BLOOD HCO3 14.4 mmol/L (20-26); ARTERIAL BLOOD O2 SATURATION 98.3 % (94-98); ARTERIAL BLOOD PCO2 25.9 mmHg (35-45); ARTERIAL BLOOD PH 7.36 (7.35-7.45); ARTERIAL BLOOD PO2 118.4 mmHg (80-100); ARTERIAL BLOOD TOTAL CO2 15.2 mmol/L (21-25)
[2017-05-25 05:02] LABS: ARTERIAL BLOOD FIO2 30%
[2017-05-25 05:03] LABS: HEMATOCRIT 29.8 % (36.0-47.0); HEMOGLOBIN 9.7 g/dL (12.0-15.5); MEAN CORPUSCULAR HEMOGLOBIN 29.3 pg (27.0-33.4); MEAN CORPUSCULAR HGB CONC 32.7 g/dL (32.0-36.0); MEAN CORPUSCULAR VOLUME 90 fl (80-97); RED BLOOD COUNT 3.33 10^6/uL (3.72-5.28); RED CELL DISTRIBUTION WIDTH 14.1 % (11.5-14.0); WHITE BLOOD COUNT 2.3 10^3/uL (4.0-10.5)
[2017-05-25 05:23] LABS: ALANINE AMINOTRANSFERASE 883 U/L (9-52); ALKALINE PHOSPHATASE 90 U/L (38-126); ANION GAP 7 (5-19); BILIRUBIN,DIRECT 0.4 mg/dL (0.0-0.4); BILIRUBIN,TOTAL 0.5 mg/dL (0.2-1.3); BLOOD UREA NITROGEN 21 mg/dL (7-20); CARBON DIOXIDE 18 mmol/L (22-30); CHLORIDE 116 mmol/L (98-107); GLUCOSE 165 mg/dL (75-110); PLATELET COUNT 99 10^3/uL (150-450); POTASSIUM 4.5 mmol/L (3.6-5.0); SODIUM 141.4 mmol/L (137-145); TOTAL PROTEIN 4.5 g/dL (6.3-8.2)
[2017-05-25 05:28] LABS: ABSOLUTE LYMPHOCYTES# (MANUAL) 0.5 10^3/uL (0.5-4.7); ABSOLUTE NEUTROPHILS# (MANUAL) 1.7 10^3/uL (1.7-8.2); BAND NEUTROPHILS % (MANUAL) 2 % (3-5); BASOPHILS % (MANUAL) 0 % (0-2); EOSINOPHILS % (MANUAL) 0 % (0-6); LYMPHOCYTES % (MANUAL) 22 % (13-45); MONOCYTES % (MANUAL) 2 % (3-13); SEGMENTED NEUTROPHILS % (MAN) 74 % (42-78); TOTAL CELLS COUNTED 50
[2017-05-25 05:30] LABS: ANISOCYTOSIS SLIGHT; BURR CELLS SLIGHT; OVALOCYTES SLIGHT; POIKILOCYTOSIS SLIGHT; SCHISTOCYTES 1+; TOXIC GRANULATION SLIGHT
[2017-05-25 05:31] LABS: PLATELET COMMENT DECREASED; PLATELET LARGE PRESENT
[2017-05-25 05:36] LABS: ASPARTATE AMINO TRANSFERASE 1470 U/L (14-36)
[2017-05-25 05:37] LABS: CALCIUM 6.7 mg/dL (8.4-10.2)
[2017-05-25] MEDS: DEXTROSE 5%-WATER 250 ML with PHENYLEPHRINE HCL 40 MG IV PRN ×2 (05:45)
--- NOTE | 2017-05-25 08:14 | RADIOLOGY REPORT (SQ) ---
EXAM DESCRIPTION: CHEST SINGLE VIEW COMPLETED DATE/TIME: 05/25/2017 6:36 am REASON FOR STUDY: resp fail COMPARISON: 05/24/2017. EXAM PARAMETERS: NUMBER OF VIEWS: One view. TECHNIQUE: Single frontal radiographic view of the chest acquired. RADIATION DOSE: NA LIMITATIONS: None. FINDINGS: LUNGS AND PLEURA: Right lower lobe infiltrate unchanged. MEDIASTINUM AND HILAR STRUCTURES: No masses. Contour normal. HEART AND VASCULAR STRUCTURES: Heart normal in size. Normal vasculature. BONES: No acute findings. HARDWARE: Stable endotracheal tube, nasogastric tube, and central line. OTHER: No other significant finding. IMPRESSION: NO CHANGE IN APPEARANCE OF THE CHEST. TECHNICAL DOCUMENTATION: JOB ID: [id number] [employer]- All Rights Reserved Reading location - IP/workstation name: [email or web address]
[2017-05-25] MEDS ORDERED: DEXTROSE 5%-1/2 NORMAL SALINE 1,000 ML IV PRN ×2 (08:16→14:44)
[2017-05-25] MEDS ORDERED: CALCIUM GLUCONATE 2,222 MG in DEXTROSE 5%-WATER 100 ML IV ONE (08:17)
[2017-05-25] MEDS: TOBRAMYCIN SULFATE NEB 40 MG/ML 30 ML NEB SCH (08:35)
[2017-05-25] MEDS ORDERED: CEFEPIME 1 GM/D5W RTU 1 GM/50 ML RTUPB IV SCH (08:45)
[2017-05-25] MEDS: ENOXAPARIN SODIUM INJ 40 MG/0.4 ML DISP.SYRIN SUBCUT SCH (09:46)
[2017-05-25] MEDS ORDERED: METHYLPREDNISOLONE INJ 40 MG/1 ML SDV IV SCH (10:00)
[2017-05-25] MEDS ORDERED: CEFEPIME 2 GM/D5W RTU 2 GM/50 ML RTUPB IV SCH (10:00)
[2017-05-25] MEDS ORDERED: FUROSEMIDE INJ/PF 20 MG/2 ML SDV IV SCH (10:00)
[2017-05-25] MEDS ORDERED: DOXYCYCLINE HYCLATE 100 MG in DEXTROSE 5%-WATER 250 ML IV SCH (10:00)
--- NOTE | 2017-05-25 12:40 | Progress Note ---
Provider Note Provider Note: Talk to Mr. Tate Humphries regarding patient's condition and he expresses wish for patient to be changed to comfort care. Accordingly patient did not want to be hooked to a ventilator machine.
[2017-05-25] MEDS ORDERED: DILTIAZEM HCL 30 MG TABLET PO SCH (14:00)
[2017-05-25] MEDS ORDERED: DEXTROSE 5%-WATER 250 ML with PHENYLEPHRINE HCL 40 MG IV PRN ×2 (14:45)
[2017-05-25 15:38] LABS: STREP PNEUMO TYPE 14 8.1 ug/mL (>1.3); STREP PNEUMO TYPE 19 2.9 ug/mL (>1.3); STREP PNEUMO TYPE 23 0.3 ug/mL (>1.3); STREP PNEUMO TYPE 26 0.7 ug/mL (>1.3); STREP PNEUMO TYPE 4 <0.1 ug/mL (>1.3); STREP PNEUMO TYPE 56 <0.1 ug/mL (>1.3)
[2017-05-25] MEDS ORDERED: AZITHROMYCIN 500 MG in DEXTROSE 5%-WATER 250 ML IV SCH (22:00)
[2017-05-25] MEDS: DOXYCYCLINE HYCLATE 100 MG in DEXTROSE 5%-WATER 250 ML IV SCH (22:05)
[2017-05-25] MEDS: CEFEPIME 1 GM/D5W RTU 1 GM/50 ML RTUPB IV SCH (22:08)
[2017-05-25] MEDS: FUROSEMIDE INJ/PF 20 MG/2 ML SDV IV SCH (22:13)
[2017-05-25] MEDS: DILTIAZEM HCL 30 MG TABLET PO SCH (22:14)
[2017-05-26] MEDS: IPRATROPIUM/ALBUTEROL 0.5-2.5 MG/3 ML AMPUL NEB SCH ×4 (01:28→19:47)
[2017-05-26] MEDS: MIDAZOLAM HCL 50 MG/100 ML RTUINJ IV PRN (01:29)
[2017-05-26 06:29] LABS: ARTERIAL BLOOD H2CO3 0.88 mmol/L (1.05-1.35); ARTERIAL BLOOD HCO3 15.5 mmol/L (20-26); ARTERIAL BLOOD O2 SATURATION 96.3 % (94-98); ARTERIAL BLOOD PCO2 29.1 mmHg (35-45); ARTERIAL BLOOD PH 7.34 (7.35-7.45); ARTERIAL BLOOD PO2 86.8 mmHg (80-100); ARTERIAL BLOOD TOTAL CO2 16.3 mmol/L (21-25)
[2017-05-26 06:30] LABS: ARTERIAL BLOOD FIO2 25%
[2017-05-26 06:39] LABS: HEMATOCRIT 30.2 % (36.0-47.0); HEMOGLOBIN 9.8 g/dL (12.0-15.5); MEAN CORPUSCULAR HGB CONC 32.4 g/dL (32.0-36.0); MEAN CORPUSCULAR VOLUME 89 fl (80-97); RED BLOOD COUNT 3.37 10^6/uL (3.72-5.28); RED CELL DISTRIBUTION WIDTH 14.6 % (11.5-14.0); WHITE BLOOD COUNT 3.3 10^3/uL (4.0-10.5)
[2017-05-26 06:47] LABS: PLATELET COUNT 96 10^3/uL (150-450)
[2017-05-26] MEDS: DILTIAZEM HCL 30 MG TABLET PO SCH ×3 (06:48→22:05)
[2017-05-26 06:49] LABS: ALANINE AMINOTRANSFERASE 743 U/L (9-52); ALBUMIN 2.1 g/dL (3.5-5.0); ALKALINE PHOSPHATASE 96 U/L (38-126); ANION GAP 10 (5-19); ASPARTATE AMINO TRANSFERASE 685 U/L (14-36); BILIRUBIN,DIRECT 0.4 mg/dL (0.0-0.4); BILIRUBIN,TOTAL 0.4 mg/dL (0.2-1.3); BLOOD UREA NITROGEN 21 mg/dL (7-20); CARBON DIOXIDE 17 mmol/L (22-30); CHLORIDE 110 mmol/L (98-107); GLUCOSE 318 mg/dL (75-110); POTASSIUM 3.8 mmol/L (3.6-5.0); SODIUM 136.5 mmol/L (137-145); TOTAL PROTEIN 4.8 g/dL (6.3-8.2)
[2017-05-26 06:56] LABS: INTERNATIONAL RATION (INR) 1.19; PROTHROMBIN TIME 15.9 SEC (11.4-15.4)
[2017-05-26 06:58] LABS: ABSOLUTE LYMPHOCYTES# (MANUAL) 0.7 10^3/uL (0.5-4.7); ABSOLUTE MONOCYTES # (MANUAL) 0.3 10^3/uL (0.1-1.4); ABSOLUTE NEUTROPHILS# (MANUAL) 2.3 10^3/uL (1.7-8.2); BAND NEUTROPHILS % (MANUAL) 5 % (3-5); BASOPHILS % (MANUAL) 0 % (0-2); EOSINOPHILS % (MANUAL) 0 % (0-6); LYMPHOCYTES % (MANUAL) 21 % (13-45); METAMYELOCYTES % (MANUAL) 1 % (0); MONOCYTES % (MANUAL) 9 % (3-13); NUCLEATED RED BLOOD CELLS 3 /100 WBC (0); SEGMENTED NEUTROPHILS % (MAN) 64 % (42-78); TOTAL CELLS COUNTED 100
[2017-05-26 06:59] LABS: CALCIUM 6.8 mg/dL (8.4-10.2)
[2017-05-26 07:00] LABS: ANISOCYTOSIS SLIGHT; PLATELET COMMENT DECREASED; POLYCHROMASIA SLIGHT; TOXIC GRANULATION SLIGHT; TOXIC VACUOLATION PRESENT
[2017-05-26] MEDS ORDERED: PHYTONADIONE INJ 10 MG/1 ML AMPULE SUBCUT ONE (08:45)
[2017-05-26] MEDS: MAGNESIUM SULFATE/D5W 1 GM/100 ML RTUPB IV SCH ×2 (08:59→10:47)
[2017-05-26 09:11] LABS: STREP PNEUMO TYPE 68 0.3 ug/mL (>1.3)
[2017-05-26] MEDS: ASPIRIN 81 MG TABLET, ENT COATED PO SCH (10:22)
[2017-05-26] MEDS: FUROSEMIDE INJ/PF 20 MG/2 ML SDV IV SCH (10:23)
[2017-05-26] MEDS: DOXYCYCLINE HYCLATE 100 MG in DEXTROSE 5%-WATER 250 ML IV SCH (10:25)
[2017-05-26] MEDS: METHYLPREDNISOLONE INJ 40 MG/1 ML SDV IV SCH ×2 (10:42→22:00)
[2017-05-26] MEDS: CEFEPIME 1 GM/D5W RTU 1 GM/50 ML RTUPB IV SCH ×2 (10:48→21:59)
--- NOTE | 2017-05-26 13:13 | PDOC PROGRESS REPORT ---
Subjective Progress Note for:: 05/26/17 Subjective:: Unable to obtain due to mental status Review of systems Unable to obtain due to mental status All significant laboratories and diagnostics Reason For Visit: ACUTE HYPOXIC RESPIRATORY FAILURE WITH PNEUMONIA Physical Exam Vital Signs: Temp Pulse Resp BP Pulse Ox 97.9 F 88 20 106/77 96 05/26/17 07:51 05/26/17 07:51 05/26/17 07:51 05/26/17 07:51 05/26/17 07:51 Intake & Output 05/25/17 05/26/17 05/27/17 06:59 06:59 06:59 Intake Total 4988 3766 Output Total 625 1605 45 Balance 4363 2161 -45 Weight 60.1 kg 63.3 kg General appearance: PRESENT: other - sedated Head exam: PRESENT: atraumatic, normocephalic Eye exam: PRESENT: conjunctiva pale, EOMI, PERRLA Ear exam: PRESENT: normal external ear exam Mouth exam: PRESENT: moist Neck exam: ABSENT: full ROM, JVD, lymphadenopathy, tenderness Respiratory exam: PRESENT: clear to auscultation pavel, decreased breath sounds Cardiovascular exam: PRESENT: tachycardia. ABSENT: diastolic murmur, systolic murmur Vascular exam: PRESENT: pallor GI/Abdominal exam: PRESENT: normal bowel sounds, soft. ABSENT: tenderness Extremities exam: PRESENT: pedal edema, +1 edema, other - Purplish discoloration of toes improved Neurological exam: PRESENT: other Psychiatric exam: PRESENT: other - sedated Skin exam: PRESENT: pallor Results Laboratory Results: 05/26/17 06:10 05/26/17 06:10 05/25/17 05/26/17 05/26/17 08:45 06:10 06:10 WBC 3.3 L RBC 3.37 L Hgb 9.8 L Hct 30.2 L MCV 89 MCH 29.0 MCHC 32.4 RDW 14.6 H Plt Count 96 L Seg Neutrophils % Not Reportable Lymphocytes % Not Reportable Monocytes % Not Reportable Eosinophils % Not Reportable Basophils % Not Reportable Absolute Neutrophils Not Reportable Absolute Lymphocytes Not Reportable Absolute Monocytes Not Reportable Absolute Eosinophils Not Reportable Absolute Basophils Not Reportable Carbonic Acid 0.88 L HCO3/H2CO3 Ratio 17:1 ABG pH 7.34 L ABG pCO2 29.1 L ABG pO2 86.8 ABG HCO3 15.5 L ABG O2 Saturation 96.3 ABG Base Excess -9.0 FiO2 25% Sodium Potassium Chloride Carbon Dioxide Anion Gap BUN Creatinine Est GFR ( Amer) Est GFR (Non-Af Amer) Glucose Lactic Acid 3.0 H Calcium Magnesium Total Bilirubin AST ALT Alkaline Phosphatase Total Protein Albumin 05/26/17 06:10 WBC RBC Hgb Hct MCV MCH MCHC RDW Plt Count Seg Neutrophils % Lymphocytes % Monocytes % Eosinophils % Basophils % Absolute Neutrophils Absolute Lymphocytes Absolute Monocytes Absolute Eosinophils Absolute Basophils Carbonic Acid HCO3/H2CO3 Ratio ABG pH ABG pCO2 ABG pO2 ABG HCO3 ABG O2 Saturation ABG Base Excess FiO2 Sodium 136.5 L Potassium 3.8 Chloride 110 H Carbon Dioxide 17 L Anion Gap 10 BUN 21 H Creatinine 0.52 Est GFR ( Amer) > 60 Est GFR (Non-Af Amer) > 60 Glucose 318 H Lactic Acid Calcium 6.8 L* Magnesium 1.4 L Total Bilirubin 0.4 AST 685 H ALT 743 H Alkaline Phosphatase 96 Total Protein 4.8 L Albumin 2.1 L 05/22/17 07:49 Sputum Gram Stain - Final 05/22/17 07:49 Sputum Sputum Culture - Final Escherichia Coli C.albicans/C.dubliniensis Normal Constance Absent 05/22/17 01:21 Clean Catch Midstream Legionella Urinary Antigen - Final 05/23/17 05/23/17 05/23/17 04:16 04:16 09:34 Creatine Kinase 116 Cancelled CK-MB (CK-2) 7.91 H Troponin I 0.596 05/23/17 05/23/17 05/23/17 09:34 09:34 11:19 Creatine Kinase Cancelled 158 H CK-MB (CK-2) Cancelled Troponin I Cancelled 05/23/17 05/23/17 05/23/17 11:19 18:00 21:05 Creatine Kinase 94 CK-MB (CK-2) 12.20 H 10.60 H Troponin I 0.781 0.437 05/23/17 05/23/17 23:30 23:30 Creatine Kinase 116 CK-MB (CK-2) 9.67 H Troponin I 0.294 Impressions: KUB X-Ray 05/23/17 09:16 IMPRESSION: NG tube with its tip in the left upper quadrant presumably at the level of the mid stomach. Other findings as noted above Chest X-Ray 05/25/17 06:00 IMPRESSION: NO CHANGE IN APPEARANCE OF THE CHEST. Assessment & Plan - Diagnosis (1) Acute respiratory failure with hypoxia Is this a current diagnosis for this admission?: Yes Plan: Patient is intubated. She is having intermittent spontaneous respirations. wished comfort measures however Dr. Barnhart wanting to hold of for now removal of ventilatory support (2) Atrial fibrillation and flutter Is this a current diagnosis for this admission?: Yes Plan: Exacerbated due to sepsis. Continue low-dose Cardizem (3) Hypokalemia Is this a current diagnosis for this admission?: Yes Plan: Resolved (4) Malnourished Qualifiers: Malnutrition type: protein-calorie malnutrition Protein-calorie malnutrition severity: moderate Qualified Code(s): E44.0 - Moderate protein- calorie malnutrition Is this a current diagnosis for this admission?: Yes Plan: Poor prognostic factor in the setting of sepsis (5) Pneumonia Qualifiers: Pneumonia type: due to unspecified organism Laterality: right Lung location: unspecified part of lung Qualified Code(s): J18.9 - Pneumonia, unspecified organism Is this a current diagnosis for this admission?: Yes Plan: Continue cefepime (6) Sepsis Qualifiers: Sepsis type: sepsis due to unspecified organism Qualified Code(s): A41.9 - Sepsis, unspecified organism Is this a current diagnosis for this admission?: Yes Plan: Patient progress to septic shock. Currently requiring vasopressor support and fluids (7) Tobacco abuse Is this a current diagnosis for this admission?: Yes Plan: Had been educated about quitting on admission (8) Alcohol use Is this a current diagnosis for this admission?: Yes Plan: Multivitamin and thiamine (9) Hyperkalemia Is this a current diagnosis for this admission?: Yes Plan: Resolved (10) Ischemic hepatitis Is this a current diagnosis for this admission?: Yes Plan: Liver function tests trending down. Due to septic process (11) Hypomagnesemia Is this a current diagnosis for this admission?: Yes Plan: Replace IV and trend (12) Thrombocytopenia Is this a current diagnosis for this admission?: Yes Plan: Discontinue Lovenox and trend - Time Time Spent with patient: 15-24 minutes Anticipated discharge: Hospice Within: within 48 hours - Inpatient Certification Based on my medical assessment, after consideration of the patient's comorbidities, presenting symptoms, or acuity I expect that the services needed warrant INPATIENT care.: Yes I certify that my determination is in accordance with my understanding of Medicare's requirements for reasonable and necessary INPATIENT services [42 CFR 412.3e].: Yes Medical Necessity: Need Close Monitoring Due to Risk of Patient Decompensation, Need For IV Fluids, Need for Nebulizer Therapy and Monitoring of Response, Need for IV Antibiotics
[2017-05-27] MEDS: MIDAZOLAM HCL 50 MG/100 ML RTUINJ IV PRN (01:34)
[2017-05-27] MEDS ORDERED: DEXTROSE 40% GEL 15 GM TUBE X 2 PO PRN (01:47)
[2017-05-27] MEDS ORDERED: DEXTROSE 40% GEL 15 GM TUBE PO PRN (01:47)
[2017-05-27] MEDS ORDERED: INSULIN LISPRO 100 UNIT/ML 3 ML VIAL SUBCUT PRN (01:47)
[2017-05-27] MEDS ORDERED: GLUCAGON,HUMAN RECOMB 1 MG INJ IM PRN (01:47)
[2017-05-27] MEDS ORDERED: DEXTROSE 50%-WATER SYRINGE 12.5 GM/25 ML DOSE IV PRN (01:47)
[2017-05-27] MEDS ORDERED: DEXTROSE 50%-WATER SYRINGE 25 GM/50 ML DOSE IV PRN (01:47)
[2017-05-27] MEDS ORDERED: NORMAL SALINE 1000 ML 1,000 ML IV SCH (02:00)
[2017-05-27] MEDS: INSULIN LISPRO 100 UNIT/ML 3 ML VIAL SUBCUT PRN ×4 (02:01→17:58)
[2017-05-27] MEDS: IPRATROPIUM/ALBUTEROL 0.5-2.5 MG/3 ML AMPUL NEB SCH ×4 (02:16→20:15)
[2017-05-27 05:35] LABS: HEMATOCRIT 27.8 % (36.0-47.0); HEMOGLOBIN 9.2 g/dL (12.0-15.5); MEAN CORPUSCULAR HEMOGLOBIN 29.3 pg (27.0-33.4); MEAN CORPUSCULAR HGB CONC 32.9 g/dL (32.0-36.0); MEAN CORPUSCULAR VOLUME 89 fl (80-97); RED BLOOD COUNT 3.13 10^6/uL (3.72-5.28); RED CELL DISTRIBUTION WIDTH 13.9 % (11.5-14.0); WHITE BLOOD COUNT 2.4 10^3/uL (4.0-10.5)
[2017-05-27 05:40] LABS: ARTERIAL BLOOD BASE EXCESS -6.3 mmol/L; ARTERIAL BLOOD H2CO3 0.84 mmol/L (1.05-1.35); ARTERIAL BLOOD HCO3 17.2 mmol/L (20-26); ARTERIAL BLOOD O2 SATURATION 96.3 % (94-98); ARTERIAL BLOOD PH 7.41 (7.35-7.45); ARTERIAL BLOOD PO2 81.7 mmHg (80-100); ARTERIAL BLOOD TOTAL CO2 18.1 mmol/L (21-25)
[2017-05-27 05:42] LABS: ARTERIAL BLOOD FIO2 25%
[2017-05-27] MEDS: DILTIAZEM HCL 30 MG TABLET PO SCH ×3 (05:42→21:05)
[2017-05-27 05:55] LABS: ALANINE AMINOTRANSFERASE 566 U/L (9-52); ALBUMIN 2.2 g/dL (3.5-5.0); ALKALINE PHOSPHATASE 85 U/L (38-126); ANION GAP 7 (5-19); ASPARTATE AMINO TRANSFERASE 258 U/L (14-36); BILIRUBIN,DIRECT 0.4 mg/dL (0.0-0.4); BILIRUBIN,TOTAL 0.4 mg/dL (0.2-1.3); BLOOD UREA NITROGEN 19 mg/dL (7-20); CALCIUM 7.1 mg/dL (8.4-10.2); CARBON DIOXIDE 19 mmol/L (22-30); CHLORIDE 110 mmol/L (98-107); GLUCOSE 208 mg/dL (75-110); POTASSIUM 3.9 mmol/L (3.6-5.0); SODIUM 136.3 mmol/L (137-145); TOTAL PROTEIN 4.8 g/dL (6.3-8.2); TRIGLYCERIDES 201 mg/dL (<150)
[2017-05-27 06:02] LABS: INTERNATIONAL RATION (INR) 1.02; PROTHROMBIN TIME 14.1 SEC (11.4-15.4)
[2017-05-27 06:17] LABS: PLATELET COUNT 72 10^3/uL (150-450)
[2017-05-27 06:24] LABS: ABSOLUTE LYMPHOCYTES# (MANUAL) 0.5 10^3/uL (0.5-4.7); ABSOLUTE MONOCYTES # (MANUAL) 0.3 10^3/uL (0.1-1.4); ABSOLUTE NEUTROPHILS# (MANUAL) 1.6 10^3/uL (1.7-8.2); BAND NEUTROPHILS % (MANUAL) 1 % (3-5); BASOPHILS % (MANUAL) 0 % (0-2); EOSINOPHILS % (MANUAL) 0 % (0-6); LYMPHOCYTES % (MANUAL) 17 % (13-45); MONOCYTES % (MANUAL) 13 % (3-13); SEGMENTED NEUTROPHILS % (MAN) 66 % (42-78); TOTAL CELLS COUNTED 100
[2017-05-27 06:26] LABS: TOXIC GRANULATION SLIGHT; TOXIC VACUOLATION PRESENT
[2017-05-27 06:27] LABS: OVALOCYTES SLIGHT; PLATELET COMMENT DECREASED; POIKILOCYTOSIS SLIGHT
--- NOTE | 2017-05-27 08:44 | RADIOLOGY REPORT (SQ) ---
EXAM DESCRIPTION: CHEST SINGLE VIEW COMPLETED DATE/TIME: 05/27/2017 7:08 am REASON FOR STUDY: Pt intubated COMPARISON: Chest films 11/17/2015, 05/21/2017, 05/23/2017, 05/24/2017 EXAM PARAMETERS: NUMBER OF VIEWS: One view. TECHNIQUE: Single frontal radiographic view of the chest acquired. RADIATION DOSE: NA LIMITATIONS: None. FINDINGS: LUNGS AND PLEURA: Partial clearing of the right mid and lower lung airspace disease compar ed to 05/25/2017. Minimal patchy left basilar airspace disease, stable. Upper lobes are hyperlucent from obstructive disease. No significant pleural effusions. No pneumothorax. MEDIASTINUM AND HILAR STRUCTURES: No masses. Contour normal. HEART AND VASCULAR STRUCTURES: Heart normal in size. Normal vasculature. BONES: No acute findings. HARDWARE: Endotracheal tube tip midtrachea. Nasogastric tube tip and side port in the stomach. Righ t jugular central line tip superior vena cava OTHER: No other significant finding. IMPRESSION: Partial clearing of the airspace disease in the mid and lower lungs compared to previous Tubes and lines in good positioning TECHNICAL DOCUMENTATION: JOB ID: [id number] [email or web address]- All Rights Reserved Reading location - IP/workstation name: [email or web address]
[2017-05-27] MEDS: THIAMINE HCL 100 MG TABLET PO SCH (09:43)
[2017-05-27] MEDS: CEFEPIME 1 GM/D5W RTU 1 GM/50 ML RTUPB IV SCH ×2 (09:43→21:06)
[2017-05-27] MEDS: ASPIRIN 81 MG TABLET, ENT COATED PO SCH (09:43)
[2017-05-27] MEDS: MULTIVITAMIN TABLET PO SCH (09:44)
[2017-05-27] MEDS: NORMAL SALINE 1000 ML 1,000 ML IV PRN ×2 (11:47→21:05)
--- NOTE | 2017-05-27 12:19 | PDOC PROGRESS REPORT ---
Subjective Progress Note for:: 05/27/17 Subjective:: Unable to obtain due to mental status Review of systems Unable to obtain due to mental status All significant laboratories and diagnostics Reason For Visit: ACUTE HYPOXIC RESPIRATORY FAILURE WITH PNEUMONIA Physical Exam Vital Signs: Temp Pulse Resp BP Pulse Ox 97.7 F 88 20 96/62 L 97 05/27/17 06:00 05/27/17 05:48 05/27/17 06:00 05/27/17 05:50 05/27/17 06:00 Intake & Output 05/26/17 05/27/17 05/28/17 06:59 06:59 06:59 Intake Total 3766 2169 Output Total 1605 1425 Balance 2161 744 Weight 63.3 kg 64 kg General appearance: PRESENT: other - intubated Head exam: PRESENT: atraumatic, normocephalic Eye exam: PRESENT: conjunctiva pale, EOMI, PERRLA Ear exam: PRESENT: normal external ear exam Mouth exam: PRESENT: moist Neck exam: ABSENT: JVD, lymphadenopathy, tenderness - Adequate movement of air with upper airway rhonchi Cardiovascular exam: PRESENT: tachycardia Vascular exam: PRESENT: normal capillary refill GI/Abdominal exam: PRESENT: normal bowel sounds, soft. ABSENT: tenderness Extremities exam: PRESENT: +1 edema. ABSENT: full ROM Musculoskeletal exam: ABSENT: ambulatory Neurological exam: PRESENT: other - sedated Skin exam: PRESENT: intact, normal color Results Laboratory Results: 05/27/17 05:05 05/27/17 05:46 05/26/17 05/26/17 05/27/17 15:30 15:30 05:05 WBC RBC Hgb Hct MCV MCH MCHC RDW Plt Count Seg Neutrophils % Lymphocytes % Monocytes % Eosinophils % Basophils % Absolute Neutrophils Absolute Lymphocytes Absolute Monocytes Absolute Eosinophils Absolute Basophils Carbonic Acid 0.84 L HCO3/H2CO3 Ratio 20:1 ABG pH 7.41 ABG pCO2 28.0 L ABG pO2 81.7 ABG HCO3 17.2 L ABG O2 Saturation 96.3 ABG Base Excess -6.3 FiO2 25% Sodium Potassium Chloride Carbon Dioxide Anion Gap BUN Creatinine Est GFR ( Amer) Est GFR (Non-Af Amer) Glucose Calcium Magnesium Total Bilirubin AST ALT Alkaline Phosphatase Total Protein Albumin Triglycerides Stool Occult Blood POSITIVE Stool for White Cells NO WBCs SEEN 05/27/17 05/27/17 05:05 05:46 WBC 2.4 L RBC 3.13 L Hgb 9.2 L Hct 27.8 L MCV 89 MCH 29.3 MCHC 32.9 RDW 13.9 Plt Count 72 L Seg Neutrophils % Not Reportable Lymphocytes % Not Reportable Monocytes % Not Reportable Eosinophils % Not Reportable Basophils % Not Reportable Absolute Neutrophils Not Reportable Absolute Lymphocytes Not Reportable Absolute Monocytes Not Reportable Absolute Eosinophils Not Reportable Absolute Basophils Not Reportable Carbonic Acid HCO3/H2CO3 Ratio ABG pH ABG pCO2 ABG pO2 ABG HCO3 ABG O2 Saturation ABG Base Excess FiO2 Sodium 136.3 L Potassium 3.9 Chloride 110 H Carbon Dioxide 19 L Anion Gap 7 BUN 19 Creatinine 0.45 L Est GFR ( Amer) > 60 Est GFR (Non-Af Amer) > 60 Glucose 208 H Calcium 7.1 L Magnesium 1.6 Total Bilirubin 0.4 AST 258 H ALT 566 H Alkaline Phosphatase 85 Total Protein 4.8 L Albumin 2.2 L Triglycerides 201 H Stool Occult Blood Stool for White Cells 05/23/17 05/23/17 05/23/17 04:16 04:16 09:34 Creatine Kinase 116 Cancelled CK-MB (CK-2) 7.91 H Troponin I 0.596 05/23/17 05/23/17 05/23/17 09:34 09:34 11:19 Creatine Kinase Cancelled 158 H CK-MB (CK-2) Cancelled Troponin I Cancelled 05/23/17 05/23/17 05/23/17 11:19 18:00 21:05 Creatine Kinase 94 CK-MB (CK-2) 12.20 H 10.60 H Troponin I 0.781 0.437 05/23/17 05/23/17 23:30 23:30 Creatine Kinase 116 CK-MB (CK-2) 9.67 H Troponin I 0.294 Impressions: KUB X-Ray 05/23/17 09:16 IMPRESSION: NG tube with its tip in the left upper quadrant presumably at the level of the mid stomach. Other findings as noted above Chest X-Ray 05/25/17 06:00 IMPRESSION: NO CHANGE IN APPEARANCE OF THE CHEST. Assessment & Plan - Diagnosis (1) Acute respiratory failure with hypoxia Is this a current diagnosis for this admission?: Yes Plan: Patient is intubated. She is having intermittent spontaneous respirations. wished comfort measures however Dr. Barnhart wanting to hold of for now removal of ventilatory support (2) Atrial fibrillation and flutter Is this a current diagnosis for this admission?: Yes Plan: Exacerbated due to sepsis. Continue low-dose Cardizem (3) Hypokalemia Is this a current diagnosis for this admission?: Yes Plan: Resolved (4) Malnourished Qualifiers: Malnutrition type: protein-calorie malnutrition Protein-calorie malnutrition severity: moderate Qualified Code(s): E44.0 - Moderate protein- calorie malnutrition Is this a current diagnosis for this admission?: Yes Plan: Poor prognostic factor in the setting of sepsis (5) Pneumonia Qualifiers: Pneumonia type: due to unspecified organism Laterality: right Lung location: unspecified part of lung Qualified Code(s): J18.9 - Pneumonia, unspecified organism Is this a current diagnosis for this admission?: Yes Plan: Continue cefepime (6) Sepsis Qualifiers: Sepsis type: sepsis due to unspecified organism Qualified Code(s): A41.9 - Sepsis, unspecified organism Is this a current diagnosis for this admission?: Yes Plan: Patient progress to septic shock. Currently requiring vasopressor support and fluids (7) Tobacco abuse Is this a current diagnosis for this admission?: Yes Plan: Had been educated about quitting on admission (8) Alcohol use Is this a current diagnosis for this admission?: Yes Plan: Multivitamin and thiamine (9) Hyperkalemia Is this a current diagnosis for this admission?: Yes Plan: Resolved (10) Ischemic hepatitis Is this a current diagnosis for this admission?: Yes Plan: Liver function tests trending down. Due to septic process (11) Hypomagnesemia Is this a current diagnosis for this admission?: Yes Plan: Replaced (12) Thrombocytopenia Is this a current diagnosis for this admission?: Yes Plan: Persisting but stable - Time Time Spent with patient: 15-24 minutes Medications reviewed and adjusted accordingly: Yes Anticipated discharge: Hospice Within: within 48 hours - Inpatient Certification Based on my medical assessment, after consideration of the patient's comorbidities, presenting symptoms, or acuity I expect that the services needed warrant INPATIENT care.: Yes I certify that my determination is in accordance with my understanding of Medicare's requirements for reasonable and necessary INPATIENT services [42 CFR 412.3e].: Yes Medical Necessity: Need Close Monitoring Due to Risk of Patient Decompensation
[2017-05-28] MEDS: MIDAZOLAM HCL 50 MG/100 ML RTUINJ IV PRN (00:44)
[2017-05-28] MEDS: IPRATROPIUM/ALBUTEROL 0.5-2.5 MG/3 ML AMPUL NEB SCH ×3 (01:42→13:57)
[2017-05-28 05:13] LABS: ARTERIAL BLOOD BASE EXCESS -2.4 mmol/L; ARTERIAL BLOOD H2CO3 0.87 mmol/L (1.05-1.35); ARTERIAL BLOOD HCO3 20.6 mmol/L (20-26); ARTERIAL BLOOD O2 SATURATION 93.5 % (94-98); ARTERIAL BLOOD PCO2 28.8 mmHg (35-45); ARTERIAL BLOOD PH 7.47 (7.35-7.45); ARTERIAL BLOOD PO2 62.1 mmHg (80-100); ARTERIAL BLOOD TOTAL CO2 21.5 mmol/L (21-25)
[2017-05-28 05:14] LABS: ARTERIAL BLOOD FIO2 40%
[2017-05-28 05:25] LABS: ALANINE AMINOTRANSFERASE 384 U/L (9-52); ALBUMIN 2.1 g/dL (3.5-5.0); ALKALINE PHOSPHATASE 87 U/L (38-126); ANION GAP 8 (5-19); ASPARTATE AMINO TRANSFERASE 112 U/L (14-36); BILIRUBIN,DIRECT 0.2 mg/dL (0.0-0.4); BILIRUBIN,TOTAL 0.5 mg/dL (0.2-1.3); BLOOD UREA NITROGEN 15 mg/dL (7-20); CALCIUM 7.5 mg/dL (8.4-10.2); CARBON DIOXIDE 22 mmol/L (22-30); CHLORIDE 108 mmol/L (98-107); GLUCOSE 152 mg/dL (75-110); POTASSIUM 3.8 mmol/L (3.6-5.0); SODIUM 137.5 mmol/L (137-145); TOTAL PROTEIN 4.6 g/dL (6.3-8.2)
[2017-05-28 05:30] LABS: HEMATOCRIT 25.9 % (36.0-47.0); HEMOGLOBIN 8.6 g/dL (12.0-15.5); MEAN CORPUSCULAR HEMOGLOBIN 29.3 pg (27.0-33.4); MEAN CORPUSCULAR HGB CONC 33.3 g/dL (32.0-36.0); MEAN CORPUSCULAR VOLUME 88 fl (80-97); PLATELET COUNT 102 10^3/uL (150-450); RED BLOOD COUNT 2.95 10^6/uL (3.72-5.28); RED CELL DISTRIBUTION WIDTH 13.9 % (11.5-14.0); WHITE BLOOD COUNT 3.6 10^3/uL (4.0-10.5)
[2017-05-28] MEDS: DILTIAZEM HCL 30 MG TABLET PO SCH (05:30)
[2017-05-28 06:18] LABS: ABSOLUTE LYMPHOCYTES# (MANUAL) 0.6 10^3/uL (0.5-4.7); ABSOLUTE MONOCYTES # (MANUAL) 0.8 10^3/uL (0.1-1.4); ABSOLUTE NEUTROPHILS# (MANUAL) 2.2 10^3/uL (1.7-8.2); BAND NEUTROPHILS % (MANUAL) 3 % (3-5); BASOPHILS % (MANUAL) 0 % (0-2); EOSINOPHILS % (MANUAL) 0 % (0-6); LYMPHOCYTES % (MANUAL) 18 % (13-45); MONOCYTES % (MANUAL) 21 % (3-13); NUCLEATED RED BLOOD CELLS 2 /100 WBC (0); SEGMENTED NEUTROPHILS % (MAN) 58 % (42-78); TOTAL CELLS COUNTED 100
[2017-05-28 06:19] LABS: ANISOCYTOSIS SLIGHT; POIKILOCYTOSIS SLIGHT; TOXIC GRANULATION 1+; TOXIC VACUOLATION PRESENT
[2017-05-28 06:20] LABS: PLATELET COMMENT ADEQUATE; PLATELET LARGE PRESENT; SCHISTOCYTES 1+
--- NOTE | 2017-05-28 07:43 | RADIOLOGY REPORT (SQ) ---
EXAM DESCRIPTION: CHEST SINGLE VIEW CLINICAL HISTORY: 82 years Female, pna COMPARISON: 05/27/17. NUMBER OF VIEWS/TECHNIQUE: 1/AP LIMITATIONS: None. FINDINGS: Moderate patchiness of the right lower lobe and costophrenic angle, emphysematous hyperinflation, mild interstitial markings, normal cardiac silhouette, adequate appearing endotracheal tube tip 5.6 images from the [facility], right jugular central line tip at the upper right atrium. No pneumothorax. No acute bone defect. IMPRESSION: No significant change.
[2017-05-28] MEDS: MAGNESIUM SULFATE/D5W 1 GM/100 ML RTUPB IV SCH ×2 (09:31→12:36)
[2017-05-28] MEDS: THIAMINE HCL 100 MG TABLET PO SCH (09:32)
[2017-05-28] MEDS: CEFEPIME 1 GM/D5W RTU 1 GM/50 ML RTUPB IV SCH (09:34)
[2017-05-28] MEDS: MULTIVITAMIN TABLET PO SCH (09:42)
[2017-05-28] MEDS: ASPIRIN 81 MG TABLET, ENT COATED PO SCH (09:42)
[2017-05-28] MEDS ORDERED: ASPIRIN 81 MG TABLET, CHEWABLE NG SCH (10:00)
[2017-05-28] MEDS ORDERED: THIAMINE HCL 100 MG TABLET NG SCH (10:00)
[2017-05-28] MEDS ORDERED: MULTIVITAMINS W-IRON TABLET, CHEWABLE NG SCH (10:00)
[2017-05-28] MEDS: NORMAL SALINE 1000 ML 1,000 ML IV PRN (10:05)
[2017-05-28] MEDS ORDERED: MORPHINE SULFATE 60 MG/60 ML RTUINJ IV PRN (10:54)
[2017-05-28] MEDS ORDERED: LORAZEPAM INJ 2 MG/1 ML VIAL IV PRN (11:22)
[2017-05-28 12:44] VITALS: BP 119/75
[2017-05-28] MEDS ORDERED: DILTIAZEM HCL 30 MG TABLET NG SCH (14:00)
--- NOTE | 2017-05-28 15:36 | PDOC PROGRESS REPORT ---
Subjective Progress Note for:: 05/28/17 Subjective:: Unable to obtain due to mental status. Went over again comfort measures with patient's who is her POA and again wanted for patient to be removed from ventilatory support as there has not been any improvement over the past [address] Barnhart since per protocol needed a second physician and made him aware that again patient's wanted for patient to be provided comfort care and to be removed from ventilatory support. Review of systems Unable to obtain due to mental status All significant laboratories and diagnostics Reason For Visit: ACUTE HYPOXIC RESPIRATORY FAILURE WITH PNEUMONIA Physical Exam Vital Signs: Temp Pulse Resp BP Pulse Ox 98.1 F 88 20 92/54 L 96 05/28/17 06:21 05/28/17 01:42 05/28/17 06:21 05/28/17 06:21 05/28/17 06:21 Intake & Output 05/27/17 05/28/17 05/29/17 06:59 06:59 06:59 Intake Total 2169 3147 Output Total 1425 1555 Balance 744 1592 Weight 64 kg 65.8 kg General appearance: PRESENT: other - Sedated Head exam: PRESENT: atraumatic, normocephalic Eye exam: PRESENT: conjunctiva pink, EOMI, PERRLA Ear exam: PRESENT: normal external ear exam Mouth exam: PRESENT: moist Neck exam: PRESENT: full ROM. ABSENT: JVD, lymphadenopathy, tenderness Respiratory exam: PRESENT: clear to auscultation pavel Cardiovascular exam: PRESENT: RRR. ABSENT: diastolic murmur, systolic murmur Vascular exam: PRESENT: normal capillary refill GI/Abdominal exam: PRESENT: normal bowel sounds, soft. ABSENT: tenderness Extremities exam: ABSENT: full ROM Musculoskeletal exam: ABSENT: ambulatory Neurological exam: PRESENT: altered, other - Sedated Skin exam: PRESENT: normal color Results Laboratory Results: 05/28/17 05:00 05/28/17 05:00 05/28/17 05/28/17 05/28/17 05:00 05:00 05:00 WBC RBC Hgb Hct MCV MCH MCHC RDW Plt Count Seg Neutrophils % Lymphocytes % Monocytes % Eosinophils % Basophils % Absolute Neutrophils Absolute Lymphocytes Absolute Monocytes Absolute Eosinophils Absolute Basophils Carbonic Acid 0.87 L HCO3/H2CO3 Ratio 23:1 ABG pH 7.47 H ABG pCO2 28.8 L ABG pO2 62.1 L ABG HCO3 20.6 ABG O2 Saturation 93.5 L ABG Base Excess -2.4 FiO2 40% Sodium 137.5 Potassium 3.8 Chloride 108 H Carbon Dioxide 22 Anion Gap 8 BUN 15 Creatinine 0.38 L Est GFR ( Amer) > 60 Est GFR (Non-Af Amer) > 60 Glucose 152 H Lactic Acid 1.7 Calcium 7.5 L Magnesium 1.5 L Total Bilirubin 0.5 AST 112 H ALT 384 H Alkaline Phosphatase 87 Total Protein 4.6 L Albumin 2.1 L 05/28/17 05:00 WBC 3.6 L RBC 2.95 L Hgb 8.6 L Hct 25.9 L MCV 88 MCH 29.3 MCHC 33.3 RDW 13.9 Plt Count 102 L Seg Neutrophils % Not Reportable Lymphocytes % Not Reportable Monocytes % Not Reportable Eosinophils % Not Reportable Basophils % Not Reportable Absolute Neutrophils Not Reportable Absolute Lymphocytes Not Reportable Absolute Monocytes Not Reportable Absolute Eosinophils Not Reportable Absolute Basophils Not Reportable Carbonic Acid HCO3/H2CO3 Ratio ABG pH ABG pCO2 ABG pO2 ABG HCO3 ABG O2 Saturation ABG Base Excess FiO2 Sodium Potassium Chloride Carbon Dioxide Anion Gap BUN Creatinine Est GFR ( Amer) Est GFR (Non-Af Amer) Glucose Lactic Acid Calcium Magnesium Total Bilirubin AST ALT Alkaline Phosphatase Total Protein Albumin 05/23/17 05/23/17 05/23/17 04:16 04:16 09:34 Creatine Kinase 116 Cancelled CK-MB (CK-2) 7.91 H Troponin I 0.596 05/23/17 05/23/17 05/23/17 09:34 09:34 11:19 Creatine Kinase Cancelled 158 H CK-MB (CK-2) Cancelled Troponin I Cancelled 05/23/17 05/23/17 05/23/17 11:19 18:00 21:05 Creatine Kinase 94 CK-MB (CK-2) 12.20 H 10.60 H Troponin I 0.781 0.437 05/23/17 05/23/17 23:30 23:30 Creatine Kinase 116 CK-MB (CK-2) 9.67 H Troponin I 0.294 Impressions: KUB X-Ray 05/23/17 09:16 IMPRESSION: NG tube with its tip in the left upper quadrant presumably at the level of the mid stomach. Other findings as noted above Assessment & Plan - Diagnosis (1) Acute respiratory failure with hypoxia Is this a current diagnosis for this admission?: Yes Plan: Will proceed to extubate as per family wishes. We will provide oxygen supplementation. Will reconsult case management for hospice (2) Atrial fibrillation and flutter Is this a current diagnosis for this admission?: Yes Plan: Exacerbated due to sepsis. (3) Hypokalemia Is this a current diagnosis for this admission?: Yes Plan: Resolved (4) Malnourished Qualifiers: Malnutrition type: protein-calorie malnutrition Protein-calorie malnutrition severity: moderate Qualified Code(s): E44.0 - Moderate protein- calorie malnutrition Is this a current diagnosis for this admission?: Yes Plan: Poor prognostic factor in the setting of sepsis. Continue hydration (5) Pneumonia Qualifiers: Pneumonia type: due to unspecified organism Laterality: right Lung location: unspecified part of lung Qualified Code(s): J18.9 - Pneumonia, unspecified organism Is this a current diagnosis for this admission?: Yes Plan: Discontinue cefepime (6) Sepsis Qualifiers: Sepsis type: sepsis due to unspecified organism Qualified Code(s): A41.9 - Sepsis, unspecified organism Is this a current diagnosis for this admission?: Yes Plan: Patient progressed to septic shock. Worse part over. To place on comfort measures (7) Tobacco abuse Is this a current diagnosis for this admission?: Yes Plan: Had been educated about quitting on admission (8) Alcohol use Is this a current diagnosis for this admission?: Yes Plan: Multivitamin and thiamine (9) Hyperkalemia Is this a current diagnosis for this admission?: Yes Plan: Resolved (10) Ischemic hepatitis Is this a current diagnosis for this admission?: Yes Plan: Liver function tests trending down. Due to septic process (11) Hypomagnesemia Is this a current diagnosis for this admission?: Yes Plan: Replaced (12) Thrombocytopenia Is this a current diagnosis for this admission?: Yes Plan: Persisting but stable - Time Time Spent with patient: 35 or more minutes Medications reviewed and adjusted accordingly: Yes Anticipated discharge: Hospice Within: within 24 hours - Inpatient Certification Based on my medical assessment, after consideration of the patient's comorbidities, presenting symptoms, or acuity I expect that the services needed warrant INPATIENT care.: Yes I certify that my determination is in accordance with my understanding of Medicare's requirements for reasonable and necessary INPATIENT services [42 CFR 412.3e].: Yes Medical Necessity: Need Close Monitoring Due to Risk of Patient Decompensation
[2017-05-28] MEDS ORDERED: SCOPOLAMINE HYDROBROMIDE 1.5 MG PATCH.TD72 TD SCH (16:00)
--- NOTE | 2017-05-28 21:01 | PDOC PROGRESS REPORT ---
Subjective Progress Note for:: 05/28/17 Subjective:: intubated and sedated Reason For Visit: ACUTE HYPOXIC RESPIRATORY FAILURE WITH PNEUMONIA Physical Exam Vital Signs: Temp Pulse Resp BP Pulse Ox 98.1 F 98 20 96/68 L 99 05/25/17 05:35 05/25/17 02:45 05/25/17 05:18 05/25/17 05:18 05/25/17 05:18 Intake & Output 05/24/17 05/25/17 05/26/17 06:59 06:59 06:59 Intake Total 8288 4988 Output Total 490 625 Balance 7798 4363 Weight 54.9 kg 60.1 kg General appearance: PRESENT: no acute distress, disheveled, well-developed. ABSENT: cooperative Head exam: PRESENT: atraumatic, normocephalic Eye exam: PRESENT: conjunctiva pale. ABSENT: EOMI, nystagmus, periorbital swelling, scleral icterus Mouth exam: PRESENT: dry mucosa, neck supple, tongue midline, other - ET tube Neck exam: ABSENT: carotid bruit, JVD, lymphadenopathy, thyromegaly, tracheal deviation, tracheostomy Respiratory exam: PRESENT: decreased breath sounds, prolonged expiratory phas, rales, rhonchi, symmetrical, tachypnea, unlabored, wheezes. ABSENT: retraction , stridor Cardiovascular exam: PRESENT: RRR, +S1, +S2, tachycardia Pulses: PRESENT: normal radial pulses GI/Abdominal exam: PRESENT: diminished bowel sounds, soft Gentrourinary exam: PRESENT: indwelling catheter Extremities exam: ABSENT: clubbing, full ROM, joint swelling Musculoskeletal exam: ABSENT: ambulatory, deformity, dislocation Neurological exam: ABSENT: alert, awake, oriented to person Skin exam: PRESENT: dry, warm Results Laboratory Results: 05/25/17 04:40 05/25/17 04:40 05/24/17 05/24/17 05/24/17 09:00 10:00 20:20 WBC RBC Hgb Hct MCV MCH MCHC RDW Plt Count Seg Neutrophils % Lymphocytes % Monocytes % Eosinophils % Basophils % Absolute Neutrophils Absolute Lymphocytes Absolute Monocytes Absolute Eosinophils Absolute Basophils Carbonic Acid 0.81 L HCO3/H2CO3 Ratio 20:1 ABG pH 7.40 ABG pCO2 27.0 L ABG pO2 127.6 H ABG HCO3 16.2 L ABG O2 Saturation 98.6 H ABG Base Excess -7.6 FiO2 35% Sodium Potassium Chloride Carbon Dioxide Anion Gap BUN Creatinine Est GFR ( Amer) Est GFR (Non-Af Amer) Glucose Lactic Acid 4.7 H Calcium Magnesium 1.5 L Total Bilirubin AST ALT Alkaline Phosphatase Total Protein Albumin 05/24/17 05/24/17 05/24/17 20:20 20:20 21:31 WBC Cancelled 2.2 L D RBC Cancelled 3.36 L Hgb Cancelled 9.8 L Hct Cancelled 30.2 L MCV Cancelled 90 MCH Cancelled 29.1 MCHC Cancelled 32.3 RDW Cancelled 14.0 Plt Count Cancelled 87 L Seg Neutrophils % Cancelled 61.3 Lymphocytes % Cancelled 25.8 Monocytes % Cancelled 9.0 Eosinophils % Cancelled 3.4 Basophils % Cancelled 0.5 Absolute Neutrophils Cancelled 1.3 L Absolute Lymphocytes Cancelled 0.6 Absolute Monocytes Cancelled 0.2 Absolute Eosinophils Cancelled 0.1 Absolute Basophils Cancelled 0.0 Carbonic Acid HCO3/H2CO3 Ratio ABG pH ABG pCO2 ABG pO2 ABG HCO3 ABG O2 Saturation ABG Base Excess FiO2 Sodium 139.6 Potassium 4.4 Chloride 113 H Carbon Dioxide 19 L Anion Gap 8 BUN 22 H Creatinine 0.48 L Est GFR ( Amer) > 60 Est GFR (Non-Af Amer) > 60 Glucose 172 H Lactic Acid Calcium 6.5 L* Magnesium Total Bilirubin 0.4 AST 1892 H ALT 953 H Alkaline Phosphatase 95 Total Protein 4.3 L Albumin 2.0 L 05/25/17 05/25/17 05/25/17 04:40 04:40 04:40 WBC 2.3 L RBC 3.33 L Hgb 9.7 L Hct 29.8 L MCV 90 MCH 29.3 MCHC 32.7 RDW 14.1 H Plt Count 99 L Seg Neutrophils % Not Reportable Lymphocytes % Not Reportable Monocytes % Not Reportable Eosinophils % Not Reportable Basophils % Not Reportable Absolute Neutrophils Not Reportable Absolute Lymphocytes Not Reportable Absolute Monocytes Not Reportable Absolute Eosinophils Not Reportable Absolute Basophils Not Reportable Carbonic Acid 0.78 L HCO3/H2CO3 Ratio 18:1 ABG pH 7.36 ABG pCO2 25.9 L ABG pO2 118.4 H ABG HCO3 14.4 L ABG O2 Saturation 98.3 H ABG Base Excess -9.8 FiO2 30% Sodium 141.4 Potassium 4.5 Chloride 116 H Carbon Dioxide 18 L Anion Gap 7 BUN 21 H Creatinine 0.53 Est GFR ( Amer) > 60 Est GFR (Non-Af Amer) > 60 Glucose 165 H Lactic Acid Calcium 6.7 L* Magnesium 1.8 Total Bilirubin 0.5 AST 1470 H ALT 883 H Alkaline Phosphatase 90 Total Protein 4.5 L Albumin 2.0 L 05/25/17 04:40 WBC RBC Hgb Hct MCV MCH MCHC RDW Plt Count Seg Neutrophils % Lymphocytes % Monocytes % Eosinophils % Basophils % Absolute Neutrophils Absolute Lymphocytes Absolute Monocytes Absolute Eosinophils Absolute Basophils Carbonic Acid HCO3/H2CO3 Ratio ABG pH ABG pCO2 ABG pO2 ABG HCO3 ABG O2 Saturation ABG Base Excess FiO2 Sodium Potassium Chloride Carbon Dioxide Anion Gap BUN Creatinine Est GFR ( Amer) Est GFR (Non-Af Amer) Glucose Lactic Acid 3.0 H Calcium Magnesium Total Bilirubin AST ALT Alkaline Phosphatase Total Protein Albumin 05/22/17 07:49 Sputum Gram Stain - Final 05/22/17 07:49 Sputum Sputum Culture - Final Escherichia Coli C.albicans/C.dubliniensis Normal Constance Absent 05/22/17 01:21 Clean Catch Midstream Legionella Urinary Antigen - Final 05/23/17 11:19 Tracheal Aspirate Gram Stain - Final 05/23/17 11:19 Tracheal Aspirate Sputum Culture - Final C.albicans/C.dubliniensis Normal Constance Absent 05/23/17 05/23/17 05/23/17 04:16 04:16 09:34 Creatine Kinase 116 Cancelled CK-MB (CK-2) 7.91 H Troponin I 0.596 05/23/17 05/23/17 05/23/17 09:34 09:34 11:19 Creatine Kinase Cancelled 158 H CK-MB (CK-2) Cancelled Troponin I Cancelled 05/23/17 05/23/17 05/23/17 11:19 18:00 21:05 Creatine Kinase 94 CK-MB (CK-2) 12.20 H 10.60 H Troponin I 0.781 0.437 05/23/17 05/23/17 23:30 23:30 Creatine Kinase 116 CK-MB (CK-2) 9.67 H Troponin I 0.294 Impressions: KUB X-Ray 03/14/18 09:16 IMPRESSION: NG tube with its tip in the left upper quadrant presumably at the level of the mid stomach. Other findings as noted above Chest X-Ray 05/25/17 06:00 IMPRESSION: NO CHANGE IN APPEARANCE OF THE CHEST. Assessment & Plan - Diagnosis (1) Acute respiratory failure with hypoxia Is this a current diagnosis for this admission?: Yes Plan: intubated slight improvement (2) Atrial fibrillation and flutter Is this a current diagnosis for this admission?: Yes Plan: stable (3) Hyperkalemia Is this a current diagnosis for this admission?: No (4) Malnourished Qualifiers: Malnutrition type: protein-calorie malnutrition Protein-calorie malnutrition severity: moderate Qualified Code(s): E44.0 - Moderate protein- calorie malnutrition Is this a current diagnosis for this admission?: Yes (5) Pneumonia Qualifiers: Pneumonia type: due to unspecified organism Laterality: right Lung location: unspecified part of lung Qualified Code(s): J18.9 - Pneumonia, unspecified organism Is this a current diagnosis for this admission?: Yes Plan: GNR in sputum (6) Sepsis Qualifiers: Sepsis type: sepsis due to unspecified organism Qualified Code(s): A41.9 - Sepsis, unspecified organism Is this a current diagnosis for this admission?: Yes (7) Tobacco abuse Is this a current diagnosis for this admission?: Yes Plan: stop smoking (8) Hypothyroidism Qualifiers: Hypothyroidism type: unspecified Qualified Code(s): E03.9 - Hypothyroidism , unspecified Is this a current diagnosis for this admission?: Yes Plan: chronic - Time Total Critical Time (Minutes): 55 - Plan Summary Plan Summary: discussed with family RN and PCP agree to initiated comfort care only
--- NOTE | 2017-05-28 21:04 | PDOC PROGRESS REPORT ---
Subjective Progress Note for:: 05/25/17 Subjective:: intubated and sedated Reason For Visit: ACUTE HYPOXIC RESPIRATORY FAILURE WITH PNEUMONIA Physical Exam Vital Signs: Temp Pulse Resp BP Pulse Ox 98.1 F 101 H 22 H 106/67 97 05/28/17 07:22 05/28/17 08:00 05/28/17 08:00 05/28/17 07:22 05/28/17 08:00 Intake & Output 05/27/17 05/28/17 05/29/17 06:59 06:59 06:59 Intake Total 2169 3147 Output Total 1425 1555 80 Balance 744 1592 -80 Weight 64 kg 65.8 kg General appearance: PRESENT: no acute distress, disheveled, well-developed. ABSENT: cooperative Head exam: PRESENT: atraumatic, normocephalic Eye exam: PRESENT: conjunctiva pale. ABSENT: EOMI, nystagmus, periorbital swelling, scleral icterus Mouth exam: PRESENT: dry mucosa, neck supple, tongue midline, other - ET tube Neck exam: ABSENT: carotid bruit, JVD, lymphadenopathy, thyromegaly, tracheal deviation, tracheostomy Respiratory exam: PRESENT: decreased breath sounds, prolonged expiratory phas, rales, rhonchi, symmetrical, tachypnea, unlabored, wheezes. ABSENT: retraction , stridor Cardiovascular exam: PRESENT: irregular rhythm Pulses: PRESENT: normal radial pulses GI/Abdominal exam: PRESENT: diminished bowel sounds, soft Extremities exam: ABSENT: clubbing, full ROM, joint swelling Musculoskeletal exam: ABSENT: ambulatory, deformity, dislocation Neurological exam: ABSENT: alert, awake, oriented to person Skin exam: PRESENT: dry, warm Results Laboratory Results: 05/28/17 05:00 05/28/17 05:00 05/28/17 05/28/17 05/28/17 05:00 05:00 05:00 WBC RBC Hgb Hct MCV MCH MCHC RDW Plt Count Seg Neutrophils % Lymphocytes % Monocytes % Eosinophils % Basophils % Absolute Neutrophils Absolute Lymphocytes Absolute Monocytes Absolute Eosinophils Absolute Basophils Carbonic Acid 0.87 L HCO3/H2CO3 Ratio 23:1 ABG pH 7.47 H ABG pCO2 28.8 L ABG pO2 62.1 L ABG HCO3 20.6 ABG O2 Saturation 93.5 L ABG Base Excess -2.4 FiO2 40% Sodium 137.5 Potassium 3.8 Chloride 108 H Carbon Dioxide 22 Anion Gap 8 BUN 15 Creatinine 0.38 L Est GFR ( Amer) > 60 Est GFR (Non-Af Amer) > 60 Glucose 152 H Lactic Acid 1.7 Calcium 7.5 L Magnesium 1.5 L Total Bilirubin 0.5 AST 112 H ALT 384 H Alkaline Phosphatase 87 Total Protein 4.6 L Albumin 2.1 L 05/28/17 05:00 WBC 3.6 L RBC 2.95 L Hgb 8.6 L Hct 25.9 L MCV 88 MCH 29.3 MCHC 33.3 RDW 13.9 Plt Count 102 L Seg Neutrophils % Not Reportable Lymphocytes % Not Reportable Monocytes % Not Reportable Eosinophils % Not Reportable Basophils % Not Reportable Absolute Neutrophils Not Reportable Absolute Lymphocytes Not Reportable Absolute Monocytes Not Reportable Absolute Eosinophils Not Reportable Absolute Basophils Not Reportable Carbonic Acid HCO3/H2CO3 Ratio ABG pH ABG pCO2 ABG pO2 ABG HCO3 ABG O2 Saturation ABG Base Excess FiO2 Sodium Potassium Chloride Carbon Dioxide Anion Gap BUN Creatinine Est GFR ( Amer) Est GFR (Non-Af Amer) Glucose Lactic Acid Calcium Magnesium Total Bilirubin AST ALT Alkaline Phosphatase Total Protein Albumin 05/23/17 05/23/17 05/23/17 04:16 04:16 09:34 Creatine Kinase 116 Cancelled CK-MB (CK-2) 7.91 H Troponin I 0.596 05/23/17 05/23/17 05/23/17 09:34 09:34 11:19 Creatine Kinase Cancelled 158 H CK-MB (CK-2) Cancelled Troponin I Cancelled 05/23/17 05/23/17 05/23/17 11:19 18:00 21:05 Creatine Kinase 94 CK-MB (CK-2) 12.20 H 10.60 H Troponin I 0.781 0.437 05/23/17 05/23/17 23:30 23:30 Creatine Kinase 116 CK-MB (CK-2) 9.67 H Troponin I 0.294 Impressions: KUB X-Ray 05/23/17 09:16 IMPRESSION: NG tube with its tip in the left upper quadrant presumably at the level of the mid stomach. Other findings as noted above Chest X-Ray 05/28/17 06:00 IMPRESSION: No significant change. Assessment & Plan - Diagnosis (1) Acute respiratory failure with hypoxia Is this a current diagnosis for this admission?: Yes Plan: intubated no change (2) Atrial fibrillation and flutter Is this a current diagnosis for this admission?: Yes Plan: stable (3) Hyperkalemia Is this a current diagnosis for this admission?: No (4) Malnourished Qualifiers: Malnutrition type: protein-calorie malnutrition Protein-calorie malnutrition severity: moderate Qualified Code(s): E44.0 - Moderate protein- calorie malnutrition Is this a current diagnosis for this admission?: Yes Plan: tube feeds (5) Pneumonia Qualifiers: Pneumonia type: due to unspecified organism Laterality: right Lung location: unspecified part of lung Qualified Code(s): J18.9 - Pneumonia, unspecified organism Is this a current diagnosis for this admission?: Yes Plan: GNR in sputum (6) Sepsis Qualifiers: Sepsis type: sepsis due to unspecified organism Qualified Code(s): A41.9 - Sepsis, unspecified organism Is this a current diagnosis for this admission?: Yes Plan: vasopressors prn keep MAP>65 (7) Tobacco abuse Is this a current diagnosis for this admission?: Yes Plan: stop smoking (8) Hypothyroidism Qualifiers: Hypothyroidism type: unspecified Qualified Code(s): E03.9 - Hypothyroidism , unspecified Is this a current diagnosis for this admission?: Yes Plan: chronic - Time Total Critical Time (Minutes): 40
--- NOTE | 2017-05-28 21:07 | PDOC PROGRESS REPORT ---
Subjective Progress Note for:: 05/27/17 Subjective:: intubated and sedated Reason For Visit: ACUTE HYPOXIC RESPIRATORY FAILURE WITH PNEUMONIA Physical Exam Vital Signs: Temp Pulse Resp BP Pulse Ox 97.9 F 88 12 106/69 93 05/27/17 08:00 05/27/17 08:12 05/27/17 08:12 05/27/17 08:00 05/27/17 08:12 Intake & Output 05/26/17 05/27/17 05/28/17 06:59 06:59 06:59 Intake Total 3766 2169 Output Total 1605 1425 45 Balance 2161 744 -45 Weight 63.3 kg 64 kg General appearance: PRESENT: no acute distress, disheveled, well-developed. ABSENT: cooperative Head exam: PRESENT: atraumatic, normocephalic Eye exam: PRESENT: conjunctiva pale. ABSENT: EOMI, nystagmus, periorbital swelling, scleral icterus Mouth exam: PRESENT: dry mucosa, neck supple, tongue midline, other - ET tube Neck exam: ABSENT: carotid bruit, JVD, lymphadenopathy, thyromegaly, tracheal deviation, tracheostomy Respiratory exam: PRESENT: decreased breath sounds, prolonged expiratory phas, rales, rhonchi, symmetrical, unlabored, wheezes. ABSENT: retraction, stridor, tachypnea Cardiovascular exam: PRESENT: irregular rhythm, +S1, tachycardia. ABSENT: rubs Pulses: PRESENT: normal radial pulses GI/Abdominal exam: PRESENT: diminished bowel sounds Extremities exam: ABSENT: clubbing, full ROM, joint swelling Musculoskeletal exam: ABSENT: ambulatory, deformity, dislocation Neurological exam: ABSENT: alert, awake, oriented to person Skin exam: PRESENT: dry, warm Results Laboratory Results: 05/27/17 05:05 05/27/17 05:46 05/26/17 05/26/17 05/27/17 15:30 15:30 05:05 WBC RBC Hgb Hct MCV MCH MCHC RDW Plt Count Seg Neutrophils % Lymphocytes % Monocytes % Eosinophils % Basophils % Absolute Neutrophils Absolute Lymphocytes Absolute Monocytes Absolute Eosinophils Absolute Basophils Carbonic Acid 0.84 L HCO3/H2CO3 Ratio 20:1 ABG pH 7.41 ABG pCO2 28.0 L ABG pO2 81.7 ABG HCO3 17.2 L ABG O2 Saturation 96.3 ABG Base Excess -6.3 FiO2 25% Sodium Potassium Chloride Carbon Dioxide Anion Gap BUN Creatinine Est GFR ( Amer) Est GFR (Non-Af Amer) Glucose Calcium Magnesium Total Bilirubin AST ALT Alkaline Phosphatase Total Protein Albumin Triglycerides Stool Occult Blood POSITIVE Stool for White Cells NO WBCs SEEN 05/27/17 05/27/17 05:05 05:46 WBC 2.4 L RBC 3.13 L Hgb 9.2 L Hct 27.8 L MCV 89 MCH 29.3 MCHC 32.9 RDW 13.9 Plt Count 72 L Seg Neutrophils % Not Reportable Lymphocytes % Not Reportable Monocytes % Not Reportable Eosinophils % Not Reportable Basophils % Not Reportable Absolute Neutrophils Not Reportable Absolute Lymphocytes Not Reportable Absolute Monocytes Not Reportable Absolute Eosinophils Not Reportable Absolute Basophils Not Reportable Carbonic Acid HCO3/H2CO3 Ratio ABG pH ABG pCO2 ABG pO2 ABG HCO3 ABG O2 Saturation ABG Base Excess FiO2 Sodium 136.3 L Potassium 3.9 Chloride 110 H Carbon Dioxide 19 L Anion Gap 7 BUN 19 Creatinine 0.45 L Est GFR ( Amer) > 60 Est GFR (Non-Af Amer) > 60 Glucose 208 H Calcium 7.1 L Magnesium 1.6 Total Bilirubin 0.4 AST 258 H ALT 566 H Alkaline Phosphatase 85 Total Protein 4.8 L Albumin 2.2 L Triglycerides 201 H Stool Occult Blood Stool for White Cells 05/23/17 05/23/17 05/23/17 04:16 04:16 09:34 Creatine Kinase 116 Cancelled CK-MB (CK-2) 7.91 H Troponin I 0.596 05/23/17 05/23/17 05/23/17 09:34 09:34 11:19 Creatine Kinase Cancelled 158 H CK-MB (CK-2) Cancelled Troponin I Cancelled 05/23/17 05/23/17 05/23/17 11:19 18:00 21:05 Creatine Kinase 94 CK-MB (CK-2) 12.20 H 10.60 H Troponin I 0.781 0.437 05/23/17 05/23/17 23:30 23:30 Creatine Kinase 116 CK-MB (CK-2) 9.67 H Troponin I 0.294 Impressions: KUB X-Ray 05/23/17 09:16 IMPRESSION: NG tube with its tip in the left upper quadrant presumably at the level of the mid stomach. Other findings as noted above Assessment & Plan - Diagnosis (1) Acute respiratory failure with hypoxia Is this a current diagnosis for this admission?: Yes Plan: intubated no change (2) Atrial fibrillation and flutter Is this a current diagnosis for this admission?: Yes Plan: stable (3) Hyperkalemia Is this a current diagnosis for this admission?: No (4) Malnourished Qualifiers: Malnutrition type: protein-calorie malnutrition Protein-calorie malnutrition severity: moderate Qualified Code(s): E44.0 - Moderate protein- calorie malnutrition Is this a current diagnosis for this admission?: Yes Plan: tube feeds (5) Pneumonia Qualifiers: Pneumonia type: due to unspecified organism Laterality: right Lung location: unspecified part of lung Qualified Code(s): J18.9 - Pneumonia, unspecified organism Is this a current diagnosis for this admission?: Yes Plan: GNR in sputum (6) Sepsis Qualifiers: Sepsis type: sepsis due to unspecified organism Qualified Code(s): A41.9 - Sepsis, unspecified organism Is this a current diagnosis for this admission?: Yes Plan: vasopressors prn keep MAP>65 (7) Tobacco abuse Is this a current diagnosis for this admission?: Yes Plan: stop smoking (8) Hypothyroidism Qualifiers: Hypothyroidism type: unspecified Qualified Code(s): E03.9 - Hypothyroidism , unspecified Is this a current diagnosis for this admission?: Yes Plan: chronic - Time Total Critical Time (Minutes): 50
--- NOTE | 2017-05-28 21:09 | PDOC PROGRESS REPORT ---
Subjective Progress Note for:: 05/26/17 Subjective:: intubated and sedated Reason For Visit: ACUTE HYPOXIC RESPIRATORY FAILURE WITH PNEUMONIA Physical Exam Vital Signs: Temp Pulse Resp BP Pulse Ox 97.9 F 101 H 20 103/73 95 05/26/17 10:00 05/26/17 10:00 05/26/17 10:00 05/26/17 10:00 05/26/17 10:00 Intake & Output 05/25/17 05/26/17 05/27/17 06:59 06:59 06:59 Intake Total 4988 3766 Output Total 625 1605 150 Balance 4363 2161 -150 Weight 60.1 kg 63.3 kg General appearance: PRESENT: no acute distress, well-developed. ABSENT: cooperative, disheveled Head exam: PRESENT: atraumatic, normocephalic Eye exam: PRESENT: conjunctiva pale. ABSENT: EOMI, nystagmus, periorbital swelling, PERRLA, scleral icterus Mouth exam: PRESENT: dry mucosa, neck supple, tongue midline, other - ET tube Neck exam: ABSENT: carotid bruit, JVD, lymphadenopathy, thyromegaly, tracheal deviation, tracheostomy Respiratory exam: PRESENT: decreased breath sounds, prolonged expiratory phas, rales, rhonchi, symmetrical, unlabored. ABSENT: retraction, stridor, tachypnea Cardiovascular exam: PRESENT: irregular rhythm Pulses: PRESENT: normal radial pulses GI/Abdominal exam: PRESENT: diminished bowel sounds, soft Extremities exam: ABSENT: clubbing, joint swelling Musculoskeletal exam: ABSENT: ambulatory, deformity, dislocation Neurological exam: ABSENT: alert, awake, oriented to person Skin exam: PRESENT: dry, warm Results Laboratory Results: 05/26/17 06:10 05/26/17 06:10 05/26/17 05/26/17 05/26/17 06:10 06:10 06:10 WBC 3.3 L RBC 3.37 L Hgb 9.8 L Hct 30.2 L MCV 89 MCH 29.0 MCHC 32.4 RDW 14.6 H Plt Count 96 L Seg Neutrophils % Not Reportable Lymphocytes % Not Reportable Monocytes % Not Reportable Eosinophils % Not Reportable Basophils % Not Reportable Absolute Neutrophils Not Reportable Absolute Lymphocytes Not Reportable Absolute Monocytes Not Reportable Absolute Eosinophils Not Reportable Absolute Basophils Not Reportable Carbonic Acid 0.88 L HCO3/H2CO3 Ratio 17:1 ABG pH 7.34 L ABG pCO2 29.1 L ABG pO2 86.8 ABG HCO3 15.5 L ABG O2 Saturation 96.3 ABG Base Excess -9.0 FiO2 25% Sodium 136.5 L Potassium 3.8 Chloride 110 H Carbon Dioxide 17 L Anion Gap 10 BUN 21 H Creatinine 0.52 Est GFR ( Amer) > 60 Est GFR (Non-Af Amer) > 60 Glucose 318 H Calcium 6.8 L* Magnesium 1.4 L Total Bilirubin 0.4 AST 685 H ALT 743 H Alkaline Phosphatase 96 Total Protein 4.8 L Albumin 2.1 L 05/22/17 07:49 Sputum Gram Stain - Final 05/22/17 07:49 Sputum Sputum Culture - Final Escherichia Coli C.albicans/C.dubliniensis Normal Constance Absent 05/22/17 01:21 Clean Catch Midstream Legionella Urinary Antigen - Final 05/23/17 05/23/17 05/23/17 04:16 04:16 09:34 Creatine Kinase 116 Cancelled CK-MB (CK-2) 7.91 H Troponin I 0.596 05/23/17 05/23/17 05/23/17 09:34 09:34 11:19 Creatine Kinase Cancelled 158 H CK-MB (CK-2) Cancelled Troponin I Cancelled 05/23/17 05/23/17 05/23/17 11:19 18:00 21:05 Creatine Kinase 94 CK-MB (CK-2) 12.20 H 10.60 H Troponin I 0.781 0.437 05/23/17 05/23/17 23:30 23:30 Creatine Kinase 116 CK-MB (CK-2) 9.67 H Troponin I 0.294 Impressions: KUB X-Ray 05/23/17 09:16 IMPRESSION: NG tube with its tip in the left upper quadrant presumably at the level of the mid stomach. Other findings as noted above Chest X-Ray 05/25/17 06:00 IMPRESSION: NO CHANGE IN APPEARANCE OF THE CHEST. Assessment & Plan - Diagnosis (1) Acute respiratory failure with hypoxia Is this a current diagnosis for this admission?: Yes Plan: intubated no change (2) Atrial fibrillation and flutter Is this a current diagnosis for this admission?: Yes Plan: stable (3) Hyperkalemia Is this a current diagnosis for this admission?: Yes Plan: repeat SK if necessary lasix+glucose+insulin+Ca++ (4) Malnourished Qualifiers: Malnutrition type: protein-calorie malnutrition Protein-calorie malnutrition severity: moderate Qualified Code(s): E44.0 - Moderate protein- calorie malnutrition Is this a current diagnosis for this admission?: Yes Plan: tube feeds (5) Pneumonia Qualifiers: Pneumonia type: due to unspecified organism Laterality: right Lung location: unspecified part of lung Qualified Code(s): J18.9 - Pneumonia, unspecified organism Is this a current diagnosis for this admission?: Yes Plan: GNR in sputum (6) Sepsis Qualifiers: Sepsis type: sepsis due to unspecified organism Qualified Code(s): A41.9 - Sepsis, unspecified organism Is this a current diagnosis for this admission?: Yes Plan: vasopressors prn keep MAP>65 (7) Tobacco abuse Is this a current diagnosis for this admission?: Yes Plan: stop smoking (8) Hypothyroidism Qualifiers: Hypothyroidism type: unspecified Qualified Code(s): E03.9 - Hypothyroidism , unspecified Is this a current diagnosis for this admission?: Yes Plan: chronic - Time Total Critical Time (Minutes): 50
--- NOTE | 2017-05-30 16:27 | Death Summary ---
Summary Date : 05/29/17 Time of :: 03:44 Autopsy: No Resuscitation Status: Comfort Measures Only - Final Diagnosis (1) Pneumonia Is this a current diagnosis for this admission?: Yes (2) Acute respiratory failure with hypoxia Is this a current diagnosis for this admission?: Yes (4) Tobacco abuse Is this a current diagnosis for this admission?: Yes (5) Atrial fibrillation and flutter Is this a current diagnosis for this admission?: Yes (6) Hypokalemia Is this a current diagnosis for this admission?: Yes (7) Alcohol use Is this a current diagnosis for this admission?: Yes (8) Hyperkalemia Is this a current diagnosis for this admission?: No (9) Ischemic hepatitis Is this a current diagnosis for this admission?: Yes (10) Hypomagnesemia Is this a current diagnosis for this admission?: Yes (11) Thrombocytopenia Is this a current diagnosis for this admission?: Yes (12) Severe protein-calorie malnutrition ([place]: less than 60% of standard weight) Is this a current diagnosis for this admission?: Yes Hospital Course:: Patient was brought into emergency room by her since patient has been getting progressively weak and short of breath. Patient was admitted under the hospitalist service for the treatment of sepsis due to pneumonic process. Patient overall medical condition continued deteriorating and patient developed cat septic shock. Patient was initially assisted with BiPAP and since unable to ventilate patient was intubated when she was transferred to intensive care unit. Since patient was severely malnourished adn therefore debilitated, CODE STATUS was revisited with her who opted for patient to be DNR. Efforts were continued but despite treatment there was not much improvement. Patient's opted for patient to be provided comfort measures and patient was extubated. His management was consulted to transition patient to hospice but she on May 29, 2013 at 03:44.
[2017-05-31 07:02] LABS: INFLUENZA B AB (SERUM) CF Negative (Neg:<1:8)
== END 2017-05-29 07:00 | disposition expired | DRG 870 ==
LOC: ER 13:53 → EH 16:36 → 3W 05-22 12:24 → ICU 05-23 08:45
PROVIDERS: ADMIT Emergency Medicine; ATTEND Emergency Medicine
PROC: 5A1955Z Respiratory Ventilation, Greater than 96 Consecutive Hours (ICD-10-PCS; 2017-05-21)
PROC: 0BH17EZ Insertion of Endotracheal Airway into Trachea, Via Natural or Artificial Opening (ICD-10-PCS; principal; 2017-05-23)
PROC: 02H633Z Insertion of Infusion Device into Right Atrium, Percutaneous Approach (ICD-10-PCS; 2017-05-23)
DX: A41.9 Sepsis, unspecified organism (principal); J96.01 Acute respiratory failure with hypoxia; J18.9 Pneumonia, unspecified organism; R65.21 Severe sepsis with septic shock; E43 Unspecified severe protein-calorie malnutrition; D69.6 Thrombocytopenia, unspecified; I48.91 Unspecified atrial fibrillation; E87.5 Hyperkalemia; E83.42 Hypomagnesemia; I48.92 Unspecified atrial flutter; E87.6 Hypokalemia; Z68.24 Body mass index [BMI] 24.0-24.9, adult; Z66 Do not resuscitate; Z51.5 Encounter for palliative care; E78.5 Hyperlipidemia, unspecified; I10 Essential (primary) hypertension; E03.9 Hypothyroidism, unspecified; M19.90 Unspecified osteoarthritis, unspecified site; Z87.891 Personal history of nicotine dependence; Z79.82 Long term (current) use of aspirin; Z79.899 Other long term (current) drug therapy; Z88.8 Allergy status to other drugs, medicaments and biological substances
CPT/HCPCS: 31500; 36415; 36600; 71045; 74018; 80048; 80053; 81001; 82272; 82550; 82553; 82803; 82962; 83605; 83735; 84100; 84439; 84443; 84478; 84481; 84484; 85025; 85610; 85730; 86022; 86317; 86603; 86710; 86738; 87040; 87045; 87070; 87077; 87186; 87205; 87493; 89055; 93005; 93010; 94002; 94003; 94640; 94660; 96365; 99291; C1751; J0330; J0456; J0610; J0692; J0696; J1265; J1650; J1815; J1940; J1956; J2060; J2250; J2270; J2370; J2920; J2930; J3370; J3430; J3475; J3480; J3490; J7030; J7060; J7620; J7685; S0028